=== PATIENT | female | born 1975 | race Two or more races ===

== ENCOUNTER 2020-04-21 13:03 | Outpatient (REF) | payer MEDICAID, SELFPAY ==
--- NOTE | 2020-04-21 | MM_ITS ---
EXAMINATION: MM SCREENING DIGITAL BREAST TOMOSYNTHESIS, BILATERAL CLINICAL INFORMATION: Screening. Asymptomatic. The lifetime risk of breast cancer based on the Tyrer-Cuzick Model is 7%. COMPARISON: Mammography: 06/08/2017 TECHNIQUE: Digital breast tomosynthesis is performed in both the craniocaudal and mediolateral oblique views along with computer-aided detection (CAD). Synthesized 2D images are generated from the tomosynthesis. FINDINGS: The breasts are heterogeneously dense, which may obscure small masses (ACR BI-RADS breast composition Category c). The right MLO view has oval nodule upper quadrant 11.8 cm from nipple measuring 1.0 x 1.3 cm. This is increased in size from prior study 2017, prior measurement 0.4 x 0.6 cm. Finding may represent a reactive node. There are bilateral nipple piercings, not present on prior study. Patient will be recalled for additional imaging with ultrasound. The bilateral breasts are otherwise unremarkable with no interval mass or architectural abnormality. There are no abnormal calcifications. The skin contours are smooth. IMPRESSION: 1. Right: Nodule upper right breast increased in size since 2017, possibly reactive node. 2. Left: No mammographic evidence of malignancy. ASSESSMENT: BI-RADS 0: Incomplete - Need Additional Imaging Evaluation RECOMMENDATION: 1. Targeted ultrasound right breast. 2. Radiology department staff will contact the patient for additional imaging. This patient's information was entered into a reminder system with a target due date for their next mammogram.
== END 2020-04-21 13:04 | disposition home or self-care (01) ==
LOC: HO.MAMMO 13:03
PROVIDERS: Visit Provider Advanced Practice Midwife
DX: Z12.31 Encounter for screening mammogram for malignant neoplasm of breast (principal)
CPT/HCPCS: 77063; 77067

== ENCOUNTER 2020-04-24 11:25 | Outpatient (REF) | payer MEDICAID, SELFPAY ==
--- NOTE | 2020-04-24 11:33 | US_ITS ---
EXAMINATION: US DIAGNOSTIC ULTRASOUND BREAST, RIGHT CLINICAL INFORMATION: Recall from screening for oval nodule upper right breast on MLO view with smooth margins, increased in size from 2017, possibly reactive node. COMPARISON: Mammography 04/21/2020, 06/08/2017. TECHNIQUE: Ultrasound right breast is targeted to the upper outer quadrant. Grayscale imaging and color Doppler are performed. FINDINGS: There is a benign lymph node 11:00 position upper right breast measuring 1.1 x 0.7 cm. There is normal penelope architecture with thin cortex under 3 mm and normal color flow pattern. There is no hyperemia. No cystic change. No axillary adenopathy. Results are discussed with the patient at time of visit using an supervisor pipeline. The finding on mammography represents a benign node. There are bilateral nipple piercings since prior mammography at new right arm tattoo in past 12 months likely related to the minor change in node size. IMPRESSION: Benign node upper right breast corresponding to finding on recent mammography. ASSESSMENT: BI-RADS 2: Benign RECOMMENDATION: Routine annual mammography screening. This patient's information was entered into a reminder system with a target due date for their next mammogram.
== END 2020-04-24 11:26 | disposition home or self-care (01) ==
LOC: HO.MAMMO 11:25
PROVIDERS: PCP Nurse Practitioner Family; Visit Provider Advanced Practice Midwife
DX: N63.0 Unspecified lump in unspecified breast (principal)
CPT/HCPCS: 76642

== ENCOUNTER 2020-06-02 17:30 | Outpatient (REF) | payer MEDICAID, SELFPAY | END 2020-06-02 17:31 | disposition home or self-care (01) | LOC: HO.LAB 17:30 | PROVIDERS: PCP Nurse Practitioner Family; Visit Provider Internal Medicine | DX: Z20.828 Contact with and (suspected) exposure to other viral communicable diseases (principal) | CPT/HCPCS: C9803; U0003 ==

== ENCOUNTER 2020-06-27 15:34 | Outpatient (REF) | payer MEDICAID, SELFPAY ==
[2020-06-29 12:02] LABS: BV Int Neg Control Negative (Negative); BV Int Pos Control Positive (Positive)
== END 2020-06-27 15:35 | disposition home or self-care (01) ==
LOC: HO.LAB 15:34
PROVIDERS: PCP Nurse Practitioner Family; Visit Provider Advanced Practice Midwife
DX: N89.8 Other specified noninflammatory disorders of vagina (principal); Z20.2 Contact with and (suspected) exposure to infections with a predominantly sexual mode of transmission
CPT/HCPCS: 87480; 87491; 87510; 87591; 87660; 99212

== ENCOUNTER 2020-10-09 16:01 | Inpatient (IN) | payer MEDICAID, SELFPAY ==
--- NOTE | ~2020-10-09 | CT_ITS ---
EXAMINATION: CT CHEST WITH CONTRAST CLINICAL INFORMATION: Status post breast implant with large amount of bloody drainage COMPARISON: None TECHNIQUE: Multidetector volumetric CT imaging of the chest was obtained after the administration of 65 mL of Omnipaque 350 intravenous contrast without immediate adverse reactions. Axial MIP volume rendering provided. Sagittal and coronal reformatted images were obtained. This CT examination was performed using dose optimization techniques as appropriate, variously including the following: *Automated exposure control *Adjustment of mA and/or kV according to patient size (this includes techniques or standardized protocols for targeted exams where dose is matched to indication/reason for exam; i.e. extremities or head) *Use of iterative reconstruction technique DLP: 425 mGy-cm FINDINGS: HAND DECORATOR: Unremarkable. LUNGS: The lungs are well-expanded and clear of acute pneumonic process. There is minimal compressive bibasilar atelectasis MEDIASTINUM: Heart size and the great vessels are normal caliber. The central trachea and the bronchi are widely patent. No abnormal size mediastinal lymph nodes seen. There is no pericardial effusion. PLEURA: There are small bilateral pleural effusions. AXILLA: No lymphadenopathy. There are bilateral retro pectoralis breast implants. Lateral to the right breast tissue there is soft tissue density measuring 20 Hounsfield units. It approximately measures 8.4 x 2.6 cm on axial image 45/3 and likely represents seroma or old hematoma. UPPER ABDOMEN: Visualized liver, spleen, pancreas and bilateral adrenal glands unremarkable. OSSEOUS STRUCTURES: No lytic or sclerotic process seen. CT/CT chest w con IMPRESSION: Bilateral retroareolar breast implants. There is soft tissue density lateral and posterior the right breast tissue likely old hematoma/seroma. There are bilateral small pleural effusions and bilateral compressive minimal atelectasis.
--- NOTE | ~2020-10-09 | US_ITS ---
EXAMINATION: ULTRASOUND-GUIDED RIGHT BREAST ASPIRATION CLINICAL INFORMATION: Hematoma right breast after breast augmentation COMPARISON: CT scan of October 09, 2020 of the chest TECHNIQUE: Ultrasound-guided aspiration of the right breast FINDINGS: Informed consent was obtained from the patient prior to the procedure. During this process, the procedure and potential alternatives were explained, along with the intended outcome and benefits. The risks of the procedure, as well as the risk of not doing the procedure, were discussed. The patient was given the opportunity to ask questions regarding the procedure and appeared competent to make medical decisions. A signed consent form which documents this discussion was placed in the medical record. Using sterile technique and ultrasound guidance a 5 Hebrew Yueh needle was placed into right breast fluid collection along the lateral aspect. Lysed blood was aspirated with repositioning of the needle into multiple fluid pockets. A total of 62 mL of nonclotting blood was removed from multiple areas of diminished density with the appearance of liquid remaining however the needle tracks can be seen within the low echogenicity representing tracts within nonlysed hematoma. US/US drain soft tissue w imaging IMPRESSION: Aspiration of 62 mL of nonclotting sanguinous fluid. Residual non-liquefied hematoma present.
[2020-10-09 16:16] VITALS: BP 138/78; PULSE 94; RESP 18; TEMP 36.8; O2SAT 100; BMI 27.4
[2020-10-09 18:00] VITALS: BP 120/56; PULSE 92; RESP 18; TEMP 37.3; O2SAT 98
--- NOTE | 2020-10-09 20:03 | PC.NURSE ---
PT TO ED WITH C/O BLEEDING FROM SURGICAL SITE FROM BREAST AUGMENTATION ON 09/24/20 IN [place]. PT HAS BLEEDING THRU DRESSINGS. DRESSING REMOVED BY PA. PRENATAL GENETIC COUNSELOR AT BEDSIDE WITH PA. PT DENIES PAIN AT THIS TIME. PT ARRIVES ALERT, RESPIRATIONS EASY, N/L. SKIN W/D. WILL CONTINUE TO MONITOR PT.
[2020-10-09 21:01] LABS: MANUAL DIFF FLAG NO
[2020-10-09 21:03] LABS: Basophils Percent Auto 0.2 % (0-2); Eosinophils Absolute Auto 0.3 X10*3/uL (0.0-0.4); Eosinophils Percent Auto 3.2 % (0-4); Hemoglobin 9.4 g/dl (12.0-16.0); Imm Gran Abs Auto 0.06 X10*3/uL (0.00-0.03); Imm Gran Pct Auto 0.7 % (0.0-0.4); Lymphocytes Absolute Auto 2.1 X10*3/uL (1.2-4.9); Lymphocytes Percent Auto 24.5 % (20-40); Mean Corpuscular HGB Conc 31.3 g/dl (31.0-35.0); Mean Corpuscular Hemoglobin 27.7 pg (27.0-33.0); Mean Corpuscular Volume 88.5 fL (80-98); Monocytes Absolute Auto 0.4 X10*3/uL (0.1-1.2); Monocytes Percent Auto 4.8 % (2-11); Neutrophils Absolute Auto 5.8 X10*3/uL (2.0-8.3); Neutrophils Percent Auto 66.6 % (45-73); Platelet Count 591 X10*3/uL (160-400); Red Blood Count 3.39 X10*6/uL (4.20-5.50); Red Cell Distribution Width 15.8 % (11.0-16.0); White Blood Count 8.7 X10*3/uL (4.8-10.8)
--- NOTE | 2020-10-09 21:07 | PC.NURSE ---
LABS DRAWN TO LAB.
[2020-10-09 21:09] LABS: INTERNATIONAL NORM RATIO 1.1 (0.9-1.1); Prothrombin Time 12.6 SEC (10.8-13.0)
[2020-10-09 21:11] LABS: Partial Thromboplastin Time 36.2 SEC (24.1-38.0)
[2020-10-09 21:25] LABS: Anion Gap 11 (12-20); Blood Urea Nitrogen 13 mg/dL (9-16); Calcium 8.9 mg/dL (8.4-10.2); Carbon Dioxide 25 mmol/L (22-29); Chloride 106 mmol/L (96-108); Creatinine Clr Calc Pharmacy 109.7; Estimated Glomerular Filt Rate > 60; Glucose Random 88 mg/dL (60-115); Potassium 4.2 mmol/L (3.3-5.1); Sodium 138 mmol/L (135-145)
--- NOTE | 2020-10-09 22:28 | PC.NURSE ---
pt to ct in stretcher.
[2020-10-09 22:44] VITALS: BP 118/71; PULSE 89; RESP 16; TEMP 37; O2SAT 99
[2020-10-09 23:48] VITALS: BP 124/74; PULSE 87
--- NOTE | 2020-10-09 23:48 | ED_ITS ---
HPI - General Adult General Chief complaint: General Medical Stated complaint: s/p surgery bleeding Time Seen by Provider: 10/09/20 18:30 Source: patient Mode of arrival: ambulatory History of Present Illness HPI narrative: 44-year-old female with a past medical history of anxiety, depression, breast augmentation and tummy tuck in [place] and 09/24 presenting to the ED complaining of increased bleeding from right breast since last night. R eports soaking multiple pads/through clothing. Denies pain or taking anticoagulation, denies known trauma/injury. Reports mild fatigue/lightheadedness. Denies fever, chills, headache, nausea/vomiting Onset (ago): day(s) Related Data Home Medications Medication Instructions Recorded Confirmed clonazepam 1 mg tablet 1 mg PO DAILY 06/27/20 quetiapine 400 mg tablet 400 mg PO BID 06/27/20 Previous Rx's Medication Instructions Recorded metronidazole 0.75 % vaginal gel 1 appful VAGINAL BEDTIME 5 Days 06/30/20 #70 g Allergies Allergy/AdvReac Type Severity Reaction Status Date / Time No Known Allergies Allergy Verified 06/27/20 15:51 Review of Systems Review of Systems: Constitutional: No Fever, No Chills, + Fatigue, No Malaise Cardiovascular: No Chest Pain, No SOB Gastrointestinal: No Nausea, No Vomiting, No Diarrhea, No Abdominal pain Musculoskeletal: No joint pain, No Myalgias Skin: No Skin Lesions, No rash Neuro: No Weakness, No Numbness, + lightheadedness, No Headache Yes all other systems are reviewed and are negative PMFSH Past Medical History Attestation statement: The following information was validated with the patient. Medical History (Updated 10/09/20 @ 23:58 by MO Abdalla) Anxiety Depression Surgical History (Updated 10/09/20 @ 16:22 by Lotus Barcenas RN) H/O breast augmentation History of abdominal surgery Hx of tubal ligation Family History Family History Father HTN (hypertension) Mother HTN (hypertension) Social History Social History (Updated 06/27/20 @ 15:53 by OSMAR Kenney) Alcohol intake: never Smoking Status: Never smoker Advance Directives: No Advance Directives Information Provided: Yes Gender identity: female Physical Exam Vital Signs: Vital Signs: Last Vital Signs Temp 98.6 F 10/09/20 22:44 Pulse 96 10/10/20 01:08 Resp 16 10/09/20 22:44 BP 139/81 10/10/20 01:08 Pulse Ox 99 10/09/20 22:44 Body Mass Index 27.4 Const: General: cooperative and healthy appearing Orien tation/consciousness: patient oriented x3 Limitations: no limitations HENMT: Head: Yes normal to inspection Ears: hearing grossly normal bilaterally General nose exam: Normal external nose present Face and sinus: Yes normal facial exam Eyes: General: appearance normal, both eyes and all related structures EOM: EOMs intact bilaterally Neck: Neck: Yes normal visual inspection Chest: Other: Incision sites noted to bilateral breasts. Right breast with swelling, dry blood, and ecchymosis. No appreciable fluctuance/induration or expressible drainage. No active signs of infection Resp: Effort & Inspection: normal respiratory effort Cardio: Rate: regular rate GI: Other: Incision site noted to lower abdomen with slight midline dehiscence Inspection: Yes normal to inspection Palpation (GI): Soft to palpation, Tenderness to palpation present (GI) and not rigid Skin: Rashes: no rashes Neuro: General: patient oriented x3 Gait exam (Neuro): Normal gait present Extrem: General: Yes normal to inspection Course Course Course Narrative: -H&H .11/07, no leukocytosis, labs otherwise unremarkable CT chest w con IMPRESSION: Bilateral retroareolar breast implants. There is soft tissue density lateral and posterior the right breast tissue likely old hematoma/seroma. There are bilateral small pleural effusions and bilateral compressive minimal atelectasis >> surgery consulted -[id number]--plan to admit for further management Medical Decision Making [facility] Narrative Medical decision making narrative: 44-year-old female with a past medical history of anxiety, depression, breast augmentation and tummy tuck in [place] and 09/24 presenting to the ED complaining of increased bleeding from right breast since last night. On exam VS as, NAD, physical exam as above. Concern for underlying hematoma/seroma versus infection or abscess. No signs of active cellulitis Plan: Labs, CT Lab Data Result diagrams: 10/09/20 20:47 10/09/20 20:47 Labs: Lab Results 10/09/20 10/09/20 10/09/20 Range/Units 20:47 20:47 20:47 WBC 8.7 (4.8-10.8) X10*3/uL RBC 3.39 L (4.20-5.50) X10*6/uL Hgb 9.4 L (12.0-16.0) g/dl Hct 30.0 L (37-47) % MCV 88.5 (80-98) fL MCH 27.7 (27.0-33.0) pg MCHC 31.3 (31.0-35.0) g/dl RDW 15.8 (11.0-16.0) % Plt Count 591 H (160-400) X10*3/uL MPV 9.0 L (9.4-12.3) fL Immature Gran % (Auto) 0.7 H (0.0-0.4) % Neut % (Auto) 66.6 (45-73) % Lymph % (Auto) 24.5 (20-40) % Levy % (Auto) 4.8 (2-11) % Eos % (Auto) 3.2 (0-4) % Baso % (Auto) 0.2 (0-2) % Lymph # (Auto) 2.1 (1.2-4.9) X10*3/uL Levy # (Auto) 0.4 (0.1-1.2) X10*3/uL Eos # (Auto) 0.3 (0.0-0.4) X10*3/uL Baso # (Auto) 0.0 (0.0-0.2) X10*3/uL Abs Immat Gran (auto) 0.06 H (0.00-0.03) X10*3/uL Absolute Neuts (auto) 5.8 (2.0-8.3) X10*3/uL Absolute Nucleated RBC 0.000 (0.0-0.012) X10*3/uL Nucleated RBC % (auto) 0.0 (0.0-0.2) /100WBC PT 12.6 (10.8-13.0) SEC INR 1.1 (0.9-1.1) APTT 36.2 (24.1-38.0) SEC Sodium 138 (135-145) mmol/L Potassium 4.2 (3.3-5.1) mmol/L Chloride 106 (96-108) mmol/L Carbon Dioxide 25 (22-29) mmol/L Anion Gap 11 L (12-20) BUN 13 (9-16) mg/dL Creatinine 0.70 (0.5-1.4) mg/dL Estim Creat Clear Calc 109.7 Estimated GFR > 60 Random Glucose 88 (60-115) mg/dL Calcium 8.9 (8.4-10.2) mg/dL Discharge Plan Discharge Clinical Impression: Breast hematoma, Post-operative complication Patient Disposition: Admitted As Inpatient
--- NOTE | 2020-10-10 00:29 | PC.NURSE ---
PT BEING ADMITTED AT THIS TIME. PT REMAINS ALERT, RESPIRAITONS EASY, N/L. SKIN W/D. WILL CONTINUE TO MONITOR PT.
[2020-10-10 01:08] VITALS: BP 134/75; BP 139/81; PULSE 92; PULSE 96
--- NOTE | 2020-10-10 01:09 | PC.NURSE ---
ISRAEL'S OBTAINED TO
[2020-10-10 02:06] LABS: COVID-19 Test Negative (Negative)
--- NOTE | 2020-10-10 03:01 | PC.NURSE ---
PT SLEEPING, WAKES TO VOICE, PT AWAITING ROOM ASSIGNMENT FOR ADMISSION. WILL CONTINUE TO MONITOR PT.
[2020-10-10 04:00] VITALS: BP 132/78; PULSE 82; RESP 16
--- NOTE | 2020-10-10 05:00 | PC.NURSE ---
MED REC DONE. PT DENIES ANY COMPLAINTS,
--- NOTE | 2020-10-10 05:45 | PC.NURSE ---
pt sleeping, wakes to voice, pt NPO and awaiting further orders. Pt in NAD at this time. family at bedside with pt.
--- NOTE | 2020-10-10 05:50 | P.HPGS_ITS ---
History of Present Illness History of Present Illness Date of Service: 10/10/20 Chief complaint: RIGHT BREAST HEMATOMA Narrative: Chana Beach is a 44 year old female presenting to the ED with complaints of bleeding from the right breast. She is s/p breast augmentation and abdominoplasty performed in [place], [place] on 09/24/2020. She started bleeding through her clothing 2 days ago and subsequently presented to the ED last evening. Workup in the ED included a CT of the chest which revealed a seroma or old hematoma in the right breast with intact implants. She denies any problems with her abdominal wounds Review of Systems Constitutional: Constitutional: Denies chills, Denies fever(s), Denies heada sammy(s) and Denies poor appetite ENT: Denies dizziness and Denies headache(s) Cardiovascular: Cardiovascular: Denies chest pain, Denies rapid heart rate, Denies palpitations and Denies slow heart rate Respiratory: Respiratory: Denies chest congestion, Denies cough, Denies pain on inspiration and Denies wheezing Gastrointestinal: Gastrointestinal: Denies abdominal pain, Denies bloating, Denies change in stool character, Denies constipation, Denies diarrhea, Denies nausea, Denies vomiting and Denies hematemesis Musculoskeletal: Musculoskeletal: Denies back pain, Denies arthralgias, Denies joint swelling and Denies numbness Integumentary/Breasts: Skin/Breast: Reports as per HPI, Denies change in pigmentation, Denies erythema and Denies rash Neurologic: Denies dizziness, Denies headache(s) and Denies numbness Psychiatric: Psychiatric: Denies anxiety and Denies depression Endocrine: Endocrine: Denies palpitations Hematologic/Lymphatic: Hematologic/Lymphatic: Denies easy bleeding, Denies easy bruising and Denies lymphadenopathy Allergic/Immunologic: Allergic/Immunologic: Denies wheezing PMFSH Past Medical History Medical History (Updated 10/09/20 @ 23:58 by MO Abdalla) Anxiety Depression Family History Family History Father HTN (hypertension) Mother HTN (hypertension) Surgical History Surgical History (Updated 10/10/20 @ 07:59 by Franklin Sagastume MD) H/O breast augmentation History of abdominal surgery Hx of tubal ligation Social History Social History (Updated 06/27/20 @ 15:53 by OSMAR Kenney) Alcohol intake: never Smoking Status: Never smoker Advance Directives: No Advance Directives Information Provided: Yes Gender identity: female Meds Allergies Allergy/AdvReac Type Severity Reaction Status Date / Time No Known Allergies Allergy Verified 06/27/20 15:51 Home Medications Medication Instructions Recorded Confirmed Last Taken Type clonazepam 1 mg tablet 1 mg PO DAILY 06/27/20 Unknown History quetiapine 400 mg tablet 400 mg PO BID 06/27/20 Unknown History Physical Exam Vital Signs: Vital Signs: Last Vital Signs Temp 98.6 F 10/09/20 22:44 Pulse 82 10/10/20 04:00 Resp 16 10/10/20 04:00 BP 132/78 10/10/20 04:00 Pulse Ox 99 10/09/20 22:44 Body Mass Index 27.4 Const: General: cooperative, healthy appearing, comfortable and no acute distress Nutritional Appearance: well nourished Orientation/consciousness: patient oriented x3 HENMT: Head: Yes normal to inspection Eyes: Sclerae: sclerae normal EOM: EOMs intact bilaterally Neck: Neck: Yes normal visual inspection Chest: Other: Bilateral keyhole incisions with inplants. Wound seperation noted in the lower nipple incision. Chest/axillae images: 1. 2. site of bleeding Resp: Effort & Inspection: normal respiratory effort, no cough, no respiratory distress and no stridor Cardio: Jugular venous distension: no JVD GI: Other: low transverse incision with leakage from mid incision. No erythema. No seroma/hematoma. Inspection: Yes normal to inspection Palpation (GI): Soft to palpation, nontender, no guarding and not rigid Skin: General skin exam: dry skin Rashes: no rashes Neuro: General: patient oriented x3 and no focal motor deficits Extrem: General: Yes full ROM and Yes no clubbing, cyanosis or edema Psych: Appearance: grossly normal Results Results Labs: Short CBC 10/09/20 Range/Units 20:47 WBC 8.7 (4.8-10.8) X10*3/uL Hgb 9.4 L (12.0-16.0) g/dl Hct 30.0 L (37-47) % Plt Count 591 H (160-400) X10*3/uL BMP 10/09/20 20:47 Sodium 138 Potassium 4.2 Chloride 106 Carbon Dioxide 25 BUN 13 Creatinine 0.70 Calcium 8.9 Assessment and Plan (1) Breast hematoma: Status: Acute Patient presents with complaints of bleeding from her breast incision on the right side following plastic surgery performed in [place]. Workup reveals a hematoma with leakage from the incision below the nipple. Patient does have an implant which appears to be intact. I will request an IR drainage of the right breast hematoma. Patient expressed understanding and agrees with the plan. (2) Post-operative complication: Status: Acute
[2020-10-10 07:34] VITALS: BP 106/64; PULSE 96; RESP 14; TEMP 37.2; O2SAT 96
--- NOTE | 2020-10-10 07:38 | PC.NURSE ---
Addendum entered by Sonny Bullock RN 10/10/20 07:41: radiology to assess if drainage of area possible. b Original Note: pt resting on stretcher, no c/o at this moment, denies pain, r breast dsg removed, edematous, minimal drainage, new dcd applied. Dr Whitman at [facility] for consult at this time. Plan for radia
[2020-10-10] MEDS: Dextrose 5 % and Lactated Ring 1,000 ML 125 ML IVCONT (07:48)
[2020-10-10] MEDS: 0.9 % Sodium Chloride Flush 3 ML SYRINGE IVFLUSH ×2 (07:48→07:49)
[2020-10-10 10:53] VITALS: BP 110/71; PULSE 82; RESP 16; O2SAT 97
--- NOTE | 2020-10-10 10:53 | PC.NURSE ---
Plan for US guided drainage to right breast in approx 1 hour
--- NOTE | 2020-10-10 11:30 | PC.NURSE ---
Plan is off unit for U/S guided drainage procedure
[2020-10-10] MEDS: Lidocaine HCl 1 % MPF 5 ML VIAL SUBCUT (13:06)
[2020-10-10 13:35] VITALS: BP 127/76; PULSE 84; RESP 16; O2SAT 96
--- NOTE | 2020-10-10 14:05 | MHC.CM.PN ---
Addendum entered by Gaby Rubalcava 10/10/20 14:11: PTS NEW PCP IS SHAKIR PRADO Original Note: CM MET WITH PT AND S/O WHO WAS AT BEDSIDE. PT SPEAKS LIMITED YORUBA, S/O IS BILINGUAL. PT LIVES AT HOME WITH HER ADULT SON AND SHE IS INDEPENDENT WITH CARE AND MOBILITY. PT DENIES THE USE OF DME OR SERVICES. PT DOES NOT HAVE A HCP, INFORMATION AND DOCUMENT WERE PROVIDED. PT DOES NOT KNOW WHO HER PCP IS, SHE WAS ACTIVE WITH GRANT LOZANO WHO RETIRED. CM WILL CALL [facility] TO FIND OUT WHO WAS ASSIGNED TO PT. CURRENT DC PLAN IS HOME WITH NO SERVICES PTS S/O WILL TRANSPORT
--- NOTE | 2020-10-10 14:38 | PM.DS ---
DS: Providers Provider Date of Service: 10/10/20 Date of admission: 10/10/20 00:03 Date of discharge: 10/10/20 Primary care physician: Marleny Ray NP Admitting clinician: Franklin Sagastume Discharging clinician: Franklin Sagastume DS: Diagnosis Discharge Diagnosis (1) Breast hematoma: Status: Acute (2) Post-operative complication: Status: Acute DS: Medications Discharge Medications Home Medications: Home Medications Medication Instructions Recorded Confirmed clonazepam 1 mg tablet 0.5 mg PO BEDTIME 06/27/20 10/10/20 ascorbic acid (vitamin C) [Vitamin 500 mg PO DAILY 10/10/20 10/10/20 C] biotin 800 mcg PO DAILY 10/10/20 10/10/20 ferrous sulfate 325 mg PO DAILY 10/10/20 10/10/20 quetiapine 12.5 mg PO BEDTIME 10/10/20 10/10/20 DS: Summary Hospital Course Hospital Course: Chana Beach is a 44 year old female presenting to the ED with complaints of bleeding from the right breast. She is s/p breast augmentation and abdominoplasty performed in [place], [place] on 09/24/2020. She started bleeding through her clothing 2 days ago and subsequently presented to the ED last evening. Workup in the ED included a CT of the chest which revealed a seroma or old hematoma in the right breast with intact implants. She denies any problems with her abdominal wounds. Examination revealed an area of bleeding from the keyhole incision just below the right nipple. The incision was otherwise clean and intact without erythema. Abdominal wounds appeared intact with a small wound separation the midline. No evidence of wound infection in the abdominal wounds as well. Patient was placed in observation and arrangements made for interventional radiology to drain the hematoma. This was performed on 10/10/2020 and an old hematoma evacuated. The patient tolerated this well. Patient is discharged to home and should follow up in my office in approximately 1 week for wound examination. She should call sooner for concerns. Time Spent with Patient Time attestation: Total time spent providing and/or coordinating discharge services: Discharge coordination time: Less than 30 minutes Physical Exam Vital Signs: Vital Signs: Last Vital Signs Temp 99.0 F 10/10/20 07:34 Pulse 84 10/10/20 13:35 Resp 16 10/10/20 13:35 BP 127/76 10/10/20 13:35 Pulse Ox 96 10/10/20 13:35 Body Mass Index 27.4 Const: General: cooperative, healthy appearing, comfortable and no acute distress Chest: Other: Bilateral breast incisions with keyhole type incisions. Drainage is noted above in the incision just below the nipple on the right side. A slight fullness is palpable but no drainage is noted with light pressure on the wound. Left breast is clean and intact. GI: Other: Low-transverse incision consistent with an abdominal plasty. Wounds are clean with a small separation in the center. No bloody discharge is appreciated. DS: Data Data Completed and Pending Labs on day of discharge: Laboratory Results - last 24 hr 10/09/20 10/09/20 10/09/20 20:47 20:47 20:47 WBC 8.7 RBC 3.39 L Hgb 9.4 L Hct 30.0 L MCV 88.5 MCH 27.7 MCHC 31.3 RDW 15.8 Plt Count 591 H MPV 9.0 L Immature Gran % (Auto) 0.7 H Neut % (Auto) 66.6 Lymph % (Auto) 24.5 [place] % (Auto) 4.8 Eos % (Auto) 3.2 Baso % (Auto) 0.2 Lymph # (Auto) 2.1 [place] # (Auto) 0.4 Eos # (Auto) 0.3 Baso # (Auto) 0.0 Abs Immat Gran (auto) 0.06 H Absolute Neuts (auto) 5.8 Absolute Nucleated RBC 0.000 Nucleated RBC % (auto) 0.0 PT 12.6 INR 1.1 APTT 36.2 Sodium 138 Potassium 4.2 Chloride 106 Carbon Dioxide 25 Anion Gap 11 L BUN 13 Creatinine 0.70 Estim Creat Clear Calc 109.7 Estimated GFR > 60 Random Glucose 88 Calcium 8.9 COVID-19 ([facility]) COVID-19 Clin Com 10/10/20 01:35 WBC RBC Hgb Hct MCV MCH MCHC RDW Plt Count MPV Immature Gran % (Auto) Neut % (Auto) Lymph % (Auto) [place] % (Auto) Eos % (Auto) Baso % (Auto) Lymph # (Auto) [place] # (Auto) Eos # (Auto) Baso # (Auto) Abs Immat Gran (auto) Absolute Neuts (auto) Absolute Nucleated RBC Nucleated RBC % (auto) PT INR APTT Sodium Potassium Chloride Carbon Dioxide Anion Gap BUN Creatinine Estim Creat Clear Calc Estimated GFR Random Glucose Calcium COVID-19 (LUCAS) Negative COVID-19 Clin Com See Note Discharge Plan Discharge Patient Disposition: Home, Self-Care Referrals: Marelny Ray NP [Primary Care Provider] - Franklin Sagastume MD [Physician] - 1 Week Discharge Medications: Continued biotin 800 mcg Tablet 800 mcg PO DAILY RF: 0 ascorbic acid (vitamin C) [Vitamin C] 500 mg Tablet 500 mg PO DAILY RF: 0 ferrous sulfate 325 mg (65 mg iron) Tablet 325 mg PO DAILY RF: 0 quetiapine 50 mg Tablet 12.5 mg PO BEDTIME RF: 0 clonazepam 1 mg tablet 0.5 mg PO BEDTIME RF: 0 Discharge Orders: Discharge Order (Routine); Ordered 10/10/20 Ordered By: Franklin Sagastume Diet: advance to usual diet Activity on Discharge: No heavy lifting Stand Alone Forms: Patient Portal Discharge page Care Plan Goals: Healed breast and abdominal wounds Health Concerns: Postoperative hematoma right breast Plan of Treatment: Drainage of hematoma right breast
== END 2020-10-10 16:02 | disposition home or self-care (01) | DRG 813 ==
LOC: HO.ED 23:58 → HO.EDOVER 10-10 00:20
PROVIDERS: Physician Assistant; Admitting Provider Surgery; Emergency Provider Emergency Medicine; PCP Nurse Practitioner Family; Visit Provider Surgery
DX: L76.32 Postprocedural hematoma of skin and subcutaneous tissue following other procedure (principal); F32.9 Major depressive disorder, single episode, unspecified; F41.9 Anxiety disorder, unspecified; Z20.822 Contact with and (suspected) exposure to COVID-19; Z79.899 Other long term (current) drug therapy
CPT/HCPCS: 10030; 36415; 71260; 80048; 85025; 85610; 85730; 87071; 87205; 87635; 99284; Q9967

== ENCOUNTER → 2020-10-17 14:38 | Outpatient (BNVA) | payer MEDICAID, SELFPAY | PROVIDERS: PCP Nurse Practitioner Family; Visit Provider Surgery | DX: L76.32 Postprocedural hematoma of skin and subcutaneous tissue following other procedure (principal); L03.311 Cellulitis of abdominal wall | CPT/HCPCS: 99212 ==

== ENCOUNTER 2020-10-24 12:29 | Outpatient (REF) | payer MEDICAID, SELFPAY ==
--- NOTE | ~2020-10-24 | US_ITS ---
EXAMINATION: US DIAGNOSTIC ULTRASOUND BREAST, RIGHT CLINICAL INFORMATION: 45-year-old female status post ultrasound-guided aspiration postoperative seroma right breast. Follow-up. Prior history retroperitoneal implants earlier this year performed in [place]. COMPARISON: CT chest with contrast 10/09/2020, ultrasound-guided right breast aspiration 10/10/2020. TECHNIQUE: Ultrasound right breast is performed targeted to the lower breast 3:00 through 9:00 position. Grayscale imaging and color Doppler are performed. FINDINGS: There is an irregular shaped fluid collection in the lower breast similar in appearance to the prior ultrasound 10/10/2020. There is no interval architectural abnormality or edema tracking in soft tissue planes. No surrounding hyperemia on color Doppler. Overall dimensions are approximately 2.0 x 5.6 x 6.2 cm. The overall dimensions prior to aspiration are not provided on the prior ultrasound. Prior exam pre-procedural measurements are estimated at over 2.6 x 5.6 x 6.7 cm. Results are called and discussed with Dr. Sagastume. Results discussed with the patient using an retail interior designer. Patient to follow-up with Dr. Sagastume at approximately 2 weeks, earlier if new or increasing symptoms. US/US breast RT limited IMPRESSION: Recurrent right breast seroma with overall dimensions approximately 2.0 x 5.6 x 6.2 cm. Prior pre-aspiration dimensions are estimated at over 2.6 x 5.6 x 6.7 cm. ASSESSMENT: BI-RADS 3: Probably Benign RECOMMENDATION: Patient to follow-up with Dr. Sagastume in approximately 2 weeks, earlier if new or increasing symptoms. This patient's information was entered into a reminder system with a target due date for their next mammogram.
== END 2020-10-24 12:30 | disposition home or self-care (01) ==
LOC: HO.MAMMO 12:29
PROVIDERS: Visit Provider Surgery
DX: N64.89 Other specified disorders of breast (principal); Z98.890 Other specified postprocedural states
CPT/HCPCS: 76642

== ENCOUNTER 2020-10-29 22:07 | Emergency (ER) | payer MEDICAID, SELFPAY ==
--- NOTE | ~2020-10-29 | XR_ITS ---
EXAMINATION: XR CHEST CLINICAL INFORMATION: Shortness of breath COMPARISON: 02/18/2016 TECHNIQUE: Frontal view of the chest was obtained. FINDINGS: The lungs are well expanded. There is no focal consolidation, edema, or effusion. No pneumothorax. The cardiomediastinal silhouette is within normal limits. No acute osseous abnormality. XR/XR chest 1V IMPRESSION: Clear lungs.
--- NOTE | ~2020-10-29 | CT_ITS ---
EXAMINATION: CT ANGIOGRAM OF THE CHEST WITH AND WITHOUT CONTRAST (CT PULMONARY ANGIOGRAM FOR PE) CLINICAL INFORMATION: Reason for Exam Short of breath post surgery COMPARISON: Chest radiograph 10/29/2020. CT 10/09/2020. TECHNIQUE: Prior to contrast administration, noncontrast localization images were obtained. Subsequently, multidetector volumetric imaging was performed from the thoracic inlet to below the diaphragms following the administration of 65 mL Omnipaque 350 intravenous contrast. No contrast reaction reported Sagittal, coronal, and MIP oblique sagittal reformatted images were obtained on the CT workstation, uploaded to PACS, and reviewed. This CT examination was performed using dose optimization techniques as appropriate, variously including the following: *Automated exposure control *Adjustment of mA and/or kV according to patient size (this includes techniques or standardized protocols for targeted exams where dose is matched to indication/reason for exam; i.e. extremities or head) *Use of iterative reconstruction technique Total exam dose-length product 514 mGy-cm FINDINGS: QUALITY OF STUDY/CONTRAST BOLUS: Satisfactory. PULMONARY ARTERIES: No central or segmental pulmonary emboli. THORACIC AORTA: No aneurysm or dissection. LUNG: No focal consolidation, nodules or masses. The central airways are patent. PLEURA: No pneumothorax. Small pleural effusions, right greater than left. MEDIASTINUM: Normal heart size. No pericardial effusion. No hilar or mediastinal lymphadenopathy. No evidence of septal bowing or right heart strain. CHEST WALL/AXILLA: No axillary or internal mammary lymphadenopathy. Bilateral retropectoral breast implants. There is an area of fluid in the inferior right breast soft tissues which may represent postoperative seroma. This measures 10.9 x 2.9 x 2 cm. OSSEOUS STRUCTURES: No acute or suspicious osseous abnormality. UPPER ABDOMEN: Unremarkable. No reflux of contrast into the hepatic veins to suggest elevated right heart pressures. CT/CT angio chest PE protocol IMPRESSION: 1. No pulmonary embolism. 2. Small bilateral pleural effusions. 3. Area of fluid in the inferior right breast soft tissues, possibly a postoperative seroma. Cannot exclude infection. VTE: negative
[2020-10-29 22:15] VITALS: BP 146/77; PULSE 87; RESP 18; TEMP 37.2; O2SAT 99; BMI 28.0
--- NOTE | 2020-10-29 23:45 | ECG_ITS ---
Test Reason : SOB/CP Blood Pressure : / mmHG Vent. Rate : 080 BPM Atrial Rate : 080 BPM P-R Int : 166 ms QRS Dur : 076 ms QT Int : 386 ms P-R-T Axes : 027 027 025 degrees QTc Int : 445 ms Normal sinus rhythm Normal ECG When compared with ECG of 07-MAR-2019 12:13, No significant change was found Referred By: Alejandro Hopper Electronically Signed By:Bonilla Phoenix
--- NOTE | 2020-10-29 23:45 | ED.SOB ---
HPI - SOB/Dyspnea General Chief Complaint: General Medical Stated Complaint: Wheezing/post breast reduction 09/24 Time Seen by Provider: 10/29/20 23:39 Source: patient Mode of arrival: ambulatory Limitations: no limitations History of Present Illness HPI Narrative: Patient is status post belly tuck and breast augmentation surgery done on 09/15/20 since surgery patient has been having shortness of breath which is getting worse for last 5 days been wheezing more. No history of asthma no cardiac history no leg pain or cramps no swelling of the legs wounds are healing fine patient denies any fever or cough previous COVID test was negative MD elicited complaint: shortness of breath Related Data Home Medications Medication Instructions Recorded Confirmed clonazepam 1 mg tablet 0.5 mg PO BEDTIME 06/27/20 10/17/20 ascorbic acid (vitamin C) [Vitamin 500 mg PO DAILY 10/10/20 10/17/20 C] biotin 800 mcg PO DAILY 10/10/20 10/17/20 ferrous sulfate 325 mg PO DAILY 10/10/20 10/17/20 quetiapine 12.5 mg PO BEDTIME 10/10/20 10/17/20 Previous Rx's Medication Instructions Recorded cephalexin 500 mg capsule 500 mg PO Q8H 10 Days #30 cap 10/17/20 Allergies Allergy/AdvReac Type Severity Reaction Status Date / Time No Known Allergies Allergy Verified 10/11/20 15:04 Review of Systems Review of Systems: Constitutional : No Weight loss, No Fever, No Chills ENT/Mouth : No sore throat, No Rhinorrhea Eyes: No Eye Pain, No Swelling Cardiovascular : No Chest Pain, no palpitations Respiratory : No Cough, No Sputum, + shortness of breath Gastrointestinal : no Nausea, No Vomiting, No Diarrhea, No abdominal Pain, no black stools Genitourinary : No Dysuria, No Urinary Frequency Musculoskeletal : No joint pain, No Myalgias, No Joint Swelling Skin : No Skin Lesions, No rash Neuro : No Weakness, No Numbness, No Dizziness, No Headache Psych : No Anxiety/Panic, No Depression Heme/Lymph: No Bruising, No Lymphadenopathy Endocrine : No Polyuria, No Polydipsia All other systems reviewed and are negative PMFSH Past Medical History Medical History Anxiety Depression Surgical History H/O breast augmentation History of abdominal surgery Hx of tubal ligation Family History Family History Father HTN (hypertension) Mother HTN (hypertension) Social History Social History Alcohol intake: never Smoking Status: Former smoker Use of substances other than those prescribed or required for medical reasons: No Advance Directives: No Advance Directives Information Provided: Yes service: No Current occupational status: unemployed Gender identity: female Physical Exam Vital Signs: Vital Signs: Last Vital Signs Temp 98.9 F 10/29/20 22:15 Pulse 87 10/29/20 22:15 Resp 16 10/30/20 00:00 BP 146/77 H 10/29/20 22:15 Pulse Ox 99 10/29/20 22:15 Body Mass Index 28.0 Appearance: Alert. Oriented X3. No acute distress. Eyes: Pupils equal, round and reactive to light. ENT: Pharynx normal. Neck: Normal inspection. Neck supple. CVS: Normal heart rate and rhythm. Pulses normal. Respiratory: No respiratory distress. Prolonged expiration no crackles or rales Abdomen: Soft and nontender. Bowel sounds are present, no mass palpable, no CVA tenderness Skin: Skin warm and dry. Normal skin color. Normal skin turgor. Extremities: No lower extremity edema. No calf tenderness Neuro: Oriented X 3. No motor deficit. No sensory deficit. MDM - SOB/Dyspnea MDM Narrative Medical decision making narrative: Patient with prolonged expiration/wheezing postop elevated D-dimer no crackles in the lungs COVID negative will do CTA chest to rule out PE Patient signed out to Dr. Mar pending CTA report Lab Data Attestation: I reviewed the patient's lab results. Result diagrams: 10/30/20 00:17 10/30/20 00:17 Labs: Lab Results 10/30/20 10/30/20 10/30/20 Range/Units 00:17 00:17 00:17 WBC 9.1 (4.8-10.8) X10*3/uL RBC 4.29 D (4.20-5.50) X10*6/uL Hgb 11.8 L D (12.0-16.0) g/dl Hct 37.4 D (37-47) % MCV 87.2 (80-98) fL MCH 27.5 (27.0-33.0) pg MCHC 31.6 (31.0-35.0) g/dl RDW 15.0 (11.0-16.0) % Plt Count 371 D (160-400) X10*3/uL MPV 9.8 (9.4-12.3) fL Immature Gran % (Auto) 0.2 (0.0-0.4) % Neut % (Auto) 59.4 (45-73) % Lymph % (Auto) 30.2 (20-40) % [place] % (Auto) 7.3 (2-11) % Eos % (Auto) 2.6 (0-4) % Baso % (Auto) 0.3 (0-2) % Lymph # (Auto) 2.8 (1.2-4.9) X10*3/uL [place] # (Auto) 0.7 (0.1-1.2) X10*3/uL Eos # (Auto) 0.2 (0.0-0.4) X10*3/uL Baso # (Auto) 0.0 (0.0-0.2) X10*3/uL Abs Immat Gran (auto) 0.02 (0.00-0.03) X10*3/uL Absolute Neuts (auto) 5.4 (2.0-8.3) X10*3/uL Absolute Nucleated RBC 0.000 (0.0-0.012) X10*3/uL Nucleated RBC % (auto) 0.0 (0.0-0.2) /100WBC PT 12.0 (10.8-13.0) SEC INR 1.0 (0.9-1.1) APTT 38.0 (24.1-38.0) SEC D-Dimer 990 NG/ML Sodium 139 (135-145) mmol/L Potassium 4.3 (3.3-5.1) mmol/L Chloride 105 (96-108) mmol/L Carbon Dioxide 24 (22-29) mmol/L Anion Gap 14 (12-20) BUN 14 (9-16) mg/dL Creatinine 0.77 (0.5-1.4) mg/dL Estim Creat Clear Calc 99.9 Estimated GFR > 60 Random Glucose 84 (60-115) mg/dL Calcium 9.8 D (8.4-10.2) mg/dL COVID-19 ([facility]) (Negative) COVID-19 Clin Com 10/30/20 Range/Units 00:17 WBC (4.8-10.8) X10*3/uL RBC (4.20-5.50) X10*6/uL Hgb (12.0-16.0) g/dl Hct (37-47) % MCV (80-98) fL MCH (27.0-33.0) pg MCHC (31.0-35.0) g/dl RDW (11.0-16.0) % Plt Count (160-400) X10*3/uL MPV (9.4-12.3) fL Immature Gran % (Auto) (0.0-0.4) % Neut % (Auto) (45-73) % Lymph % (Auto) (20-40) % [place] % (Auto) (2-11) % Eos % (Auto) (0-4) % Baso % (Auto) (0-2) % Lymph # (Auto) (1.2-4.9) X10*3/uL [place] # (Auto) (0.1-1.2) X10*3/uL Eos # (Auto) (0.0-0.4) X10*3/uL Baso # (Auto) (0.0-0.2) X10*3/uL Abs Immat Gran (auto) (0.00-0.03) X10*3/uL Absolute Neuts (auto) (2.0-8.3) X10*3/uL Absolute Nucleated RBC (0.0-0.012) X10*3/uL Nucleated RBC % (auto) (0.0-0.2) /100WBC PT (10.8-13.0) SEC INR (0.9-1.1) APTT (24.1-38.0) SEC D-Dimer NG/ML Sodium (135-145) mmol/L Potassium (3.3-5.1) mmol/L Chloride (96-108) mmol/L Carbon Dioxide (22-29) mmol/L Anion Gap (12-20) BUN (9-16) mg/dL Creatinine (0.5-1.4) mg/dL Estim Creat Clear Calc Estimated GFR Random Glucose (60-115) mg/dL Calcium (8.4-10.2) mg/dL COVID-19 ([facility]UCAS) Negative (Negative) COVID-19 Clin Com See Note Discharge Plan Discharge Clinical Impression: Bronchitis Prescriptions: No Action biotin 800 mcg Tablet 800 mcg PO DAILY RF: 0 ascorbic acid (vitamin C) [Vitamin C] 500 mg Tablet 500 mg PO DAILY RF: 0 ferrous sulfate 325 mg (65 mg iron) Tablet 325 mg PO DAILY RF: 0 quetiapine 50 mg Tablet 12.5 mg PO BEDTIME RF: 0 clonazepam 1 mg tablet 0.5 mg PO BEDTIME RF: 0 cephalexin 500 mg capsule 500 mg PO Q8H 10 Days Qty: 30 RF: 0
[2020-10-30] VITALS: RESP 16
[2020-10-30 00:22] LABS: Basophils Percent Auto 0.3 % (0-2); Eosinophils Absolute Auto 0.2 X10*3/uL (0.0-0.4); Eosinophils Percent Auto 2.6 % (0-4); Hematocrit 37.4 % (37-47); Hemoglobin 11.8 g/dl (12.0-16.0); Imm Gran Abs Auto 0.02 X10*3/uL (0.00-0.03); Imm Gran Pct Auto 0.2 % (0.0-0.4); Lymphocytes Absolute Auto 2.8 X10*3/uL (1.2-4.9); Lymphocytes Percent Auto 30.2 % (20-40); MANUAL DIFF FLAG NO; Mean Corpuscular HGB Conc 31.6 g/dl (31.0-35.0); Mean Corpuscular Hemoglobin 27.5 pg (27.0-33.0); Mean Corpuscular Volume 87.2 fL (80-98); Mean Platelet Volume 9.8 fL (9.4-12.3); Monocytes Absolute Auto 0.7 X10*3/uL (0.1-1.2); Monocytes Percent Auto 7.3 % (2-11); Neutrophils Absolute Auto 5.4 X10*3/uL (2.0-8.3); Neutrophils Percent Auto 59.4 % (45-73); Platelet Count 371 X10*3/uL (160-400); Red Blood Count 4.29 X10*6/uL (4.20-5.50); White Blood Count 9.1 X10*3/uL (4.8-10.8)
[2020-10-30 00:32] LABS: D Dimer 990 NG/ML
[2020-10-30] MEDS: Albuterol Sulfate 90 MCG 8 GM INHALER 4 PUFF INHALE (00:35)
[2020-10-30 00:54] LABS: Anion Gap 14 (12-20); Blood Urea Nitrogen 14 mg/dL (9-16); Calcium 9.8 mg/dL (8.4-10.2); Carbon Dioxide 24 mmol/L (22-29); Chloride 105 mmol/L (96-108); Creatinine Clr Calc Pharmacy 99.9; Estimated Glomerular Filt Rate > 60; Glucose Random 84 mg/dL (60-115); Potassium 4.3 mmol/L (3.3-5.1); Sodium 139 mmol/L (135-145)
[2020-10-30 00:55] LABS: COVID-19 Test Negative (Negative); IDNOW Serial# 9DD0AD1C
[2020-10-30] MEDS: iohexoL 350 MG/ML 100 ML INFUS..BTL 65 ML IV (02:49)
== END 2020-10-30 05:36 | disposition home or self-care (01) ==
PROVIDERS: Internal Medicine; Emergency Provider Emergency Medicine Emergency Medical Services
DX: J40 Bronchitis, not specified as acute or chronic (principal); J95.89 Other postprocedural complications and disorders of respiratory system, not elsewhere classified; R06.02 Shortness of breath; Z87.891 Personal history of nicotine dependence; Z20.822 Contact with and (suspected) exposure to COVID-19
CPT/HCPCS: 36415; 71045; 71275; 80048; 85025; 85379; 85610; 85730; 87635; 93005; 99284; Q9967

== ENCOUNTER 2020-11-17 14:28 | Emergency (ER) | payer MEDICAID, SELFPAY ==
[2020-11-17 14:48] VITALS: BP 123/78; PULSE 86; RESP 18; TEMP 37; O2SAT 95; BMI 29.4
--- NOTE | 2020-11-17 15:33 | PC.NURSE ---
PRESENT FOR BREAST EXAM WITH [facility] EM. PT TOLERATED PROCEDURE WELL. NEUROLOGIST PRESENT.
--- NOTE | 2020-11-17 16:48 | ED.GENADULT ---
HPI - General Adult General Chief complaint: Wound/Laceration Stated complaint: POST SURGICAL PAIN Time Seen by Provider: 11/17/20 15:10 Source: patient Mode of arrival: ambulatory Limitations: no limitations History of Present Illness HPI narrative: Patient presents to the ED for recurrence right breast issue since having breast augmentation done in [place]. Patient presents to ED for recurring lump on right breast. Patient denies any increased swelling of breast, redness, or nipple discharge. Patient unaware of silica moved in breast. Patient denies any recent trauma to the breast. Related Data Home Medications Medication Instructions Recorded Confirmed clonazepam 1 mg tablet 0.5 mg PO BEDTIME 06/27/20 10/17/20 ascorbic acid (vitamin C) [Vitamin 500 mg PO DAILY 10/10/20 10/17/20 C] biotin 800 mcg PO DAILY 10/10/20 10/17/20 ferrous sulfate 325 mg PO DAILY 10/10/20 10/17/20 quetiapine 12.5 mg PO BEDTIME 10/10/20 10/17/20 Previous Rx's Medication Instructions Recorded cephalexin 500 mg capsule 500 mg PO Q8H 10 Days #30 cap 10/17/20 Allergies Allergy/AdvReac Type Severity Reaction Status Date / Time No Known Allergies Allergy Verified 11/17/20 14:47 Review of Systems Review of Systems: Yes all other systems are reviewed and are negative Constitutional: Constitutional: Reports as per HPI and Reports no additional constitutional complaints Eyes: Eyes: Reports as per HPI and Reports no additional eye complaints ENT: Reports system reviewed and no additional complaints, except as documented and Reports as per HPI Cardiovascular: Cardiovascular: Reports as per HPI and Reports no additional cardiovascular complaints Respiratory: Respiratory: Reports as per HPI and Reports no additional respiratory complaints Gastrointestinal: Gastrointestinal: Reports as per HPI and Reports no additional gastrointestinal complaints Genitourinary: Genitourinary: Reports no additional female genitourinary complaints and Reports as per HPI Musculoskeletal: Musculoskeletal: Reports no additional musculoskeletal complaints and Reports as per HPI Comments: Right breast Neurologic: Reports system reviewed and no additional complaints, except as documented and Reports as per HPI Psychiatric: Psychiatric: Reports no additional psychiatric complaints and Reports as per HPI PMFSH Past Medical History Medical History Anxiety Depression Surgical History H/O breast augmentation History of abdominal surgery Hx of tubal ligation Family History Family History Father HTN (hypertension) Mother HTN (hypertension) Social History Social History Alcohol intake: never Smoking Status: Former smoker Advance Directives: No Advance Directives Information Provided: Yes Patient : No service: No Current occupational status: unemployed Gender identity: female Physical Exam Vital Signs: Vital Signs: Last Vital Signs Temp 98.6 F 11/17/20 14:48 Pulse 86 11/17/20 14:48 Resp 18 11/17/20 14:48 BP 123/78 11/17/20 14:48 Pulse Ox 95 11/17/20 14:48 Body Mass Index 29.4 Const: General: cooperative, healthy appearing, comfortable, no acute distress, well developed, alert, awake and Physically active Orientation/consciousness: patient oriented x3 HENMT: Head: Yes normal to inspection, Yes No palpable skull fracture present, Yes normocephalic and Yes atraumatic Eyes: General: appearance normal, both eyes and all related structures Neck: Neck: Yes normal visual inspection, Yes full ROM, Yes no lymphadenopathy, Yes no meningeal signs, Yes trachea midline, Yes supple and No tender Chest: Other: RIght Breast; negative for any erythema, swelling, nipple discharge, fluid leakage from scar, or any deformities. Negative for any palpable mass on inspection. Negative for any visual mass on extraction Chest palpation & inspection: normal inspection of the chest and normal palpation of entire chest wall Resp: Effort & Inspection: normal respiratory effort and able to speak in complete sentences Auscultation: clear to auscultation bilaterally Cardio: Jugular venous distension: no JVD Heart sounds: S1 normal heart sound present and S2 normal heart sound present GI: Inspection: Yes normal to inspection and No abdominal wall ecchymosis Palpation (GI): Soft to palpation, not firm, nontender, no guarding and not rigid : General: No CVA tenderness and Yes no CVA tenderness Back/Spine/Pelvis: Back: no CVA tenderness, No CVA tenderness and No back tenderness Skin: General skin exam: no rashes or lesions noted and elasticity normal Neuro: General: patient oriented x3, no meningeal signs and CN's II-XI intact bilaterally Cranial nerves: Yes CN's II-XII intact bilaterally Extrem: General: Yes normal to inspection and Yes full ROM Psych: Appearance: grossly normal, well kempt and not disheveled Course Course Course Narrative: Will discuss case with Dr. Sagastume. Reevaluation(s) Reevaluation #1: Case was discussed with Dr. Sagastume of [facility], [place]. He was made aware of patient's history and physical exam. He was sent a picuture of patient's breast. He does not recommend any further intervention, but states patient should follow-up with plastic surgeon. If Patient want he states patient can still follow up with him tomorrow. Patient was given information for Dr.Glenn Mark of [facility] plastic surgery & reconstructive surgery to contact for further evaluation. History physical exam does not indicate any infection. Patient given copy of ultrasound done October 24 for follow-up. Discharge Plan Discharge Clinical Impression: Encounter for wound re-check Patient Disposition: Home, Self-Care Instructions: Breast Augmentation (DC) Additional Instructions: Regrese al servicio de urgencias de inmediato si tiene enrojecimiento de los senos, secreci?n de pus, mal olor, hinchaz?n, dolor, dolor en el pecho, dificultad para respirar, p?rdida de l?quido o cualquier otro s?ntoma que le preocupe. El Dr. Sagastume de [facility] recomienda un seguimiento de la cirug?a pl?stica. Hector un seguimiento con el Dr. Jayme Mark MD de [facility] Llame al n?familia [phone]. La direcci?n es [address] [facility] [address]. Debe acudir a la kellie con el Dr. Sagastume de la [facility] del [facility] ?l recomienda un seguimiento con el cirujano pl?stico. Prescriptions: No Action biotin 800 mcg Tablet 800 mcg PO DAILY RF: 0 ascorbic acid (vitamin C) [Vitamin C] 500 mg Tablet 500 mg PO DAILY RF: 0 ferrous sulfate 325 mg (65 mg iron) Tablet 325 mg PO DAILY RF: 0 quetiapine 50 mg Tablet 12.5 mg PO BEDTIME RF: 0 clonazepam 1 mg tablet 0.5 mg PO BEDTIME RF: 0 cephalexin 500 mg capsule 500 mg PO Q8H 10 Days Qty: 30 RF: 0 Stand Alone Forms: Work/School Release Interventions: ED Discharge Assessment Last Done: 11/17/20 17:27 Discharge Date/Time: 11/17/20 17:29
== END 2020-11-17 17:29 | disposition home or self-care (01) ==
PROVIDERS: Emergency Provider Emergency Medicine; PCP Internal Medicine
DX: T85.848A Pain due to other internal prosthetic devices, implants and grafts, initial encounter (principal); Y92.9 Unspecified place or not applicable; N63.10 Unspecified lump in the right breast, unspecified quadrant; N64.9 Disorder of breast, unspecified; Z98.82 Breast implant status
CPT/HCPCS: 99283

== ENCOUNTER → 2020-11-18 10:38 | Outpatient (BNVA) | payer MEDICAID, SELFPAY | PROVIDERS: PCP Internal Medicine; Visit Provider Surgery | DX: N64.89 Other specified disorders of breast (principal) | CPT/HCPCS: 99212 ==

== ENCOUNTER 2020-11-25 13:51 | Outpatient (REF) | payer MEDICAID, SELFPAY ==
--- NOTE | ~2020-11-25 | US_ITS ---
EXAMINATION: US DIAGNOSTIC ULTRASOUND BREAST, RIGHT CLINICAL INFORMATION: 45-year-old female status post right parietal pectoral implants earlier this year performed in [place], [place]. Status post ultrasound-guided aspiration right seroma hematoma on 10/10/2020. Follow-up seroma/hematoma since most recent imaging 10/24/2020. COMPARISON: Targeted right breast ultrasound 07/26/2020, ultrasound-guided drainage 10/10/2020. CTA chest 10/30/2020. TECHNIQUE: Ultrasound right breast is targeted to the lower breast 3:00 through 9:00 position. Grayscale imaging and color Doppler are performed. FINDINGS: The seroma/hematoma is substantially decreased from prior exam. Current measurements are 0.5 x 0.9 x 3.6 cm. Prior measurements on 10/24/2020 are 2.0 x 5.6 x 6.2 cm. There is no surrounding hyperemia on color Doppler. There is no edema tracking in the soft tissue planes. No new fluid collection. Incidental isolated simple cyst is also noted 5:00 position 3 cm from nipple measuring only 0.9 x 0.6 cm. Results are discussed with the patient at time of visit, using an metals sales representative. US/US breast RT limited IMPRESSION: Seroma/hematoma right breast substantially decreased in size from prior exam 10/24/2020. Current dimensions are 0.5 x 0.9 x 3.6 cm (prior dimensions 2.0 x 5.6 x 6.2 cm). ASSESSMENT: BI-RADS 2: Benign RECOMMENDATION: Routine annual mammography screening. This patient's information was entered into a reminder system with a target due date for their next mammogram.
== END 2020-11-25 13:52 | disposition home or self-care (01) ==
LOC: HO.MAMMO 13:51
PROVIDERS: Visit Provider Surgery
DX: N64.89 Other specified disorders of breast (principal)
CPT/HCPCS: 76642

== ENCOUNTER 2021-01-19 10:33 | Outpatient (REF) | payer MEDICAID, SELFPAY ==
[2021-01-19 15:23] LABS: CT PCR NOT DETECTED (Not Detect.); NG PCR NOT DETECTED (Not Detect.)
[2021-01-20 08:39] LABS: BV Int Neg Control Negative (Negative); BV Int Pos Control Positive (Positive)
== END 2021-01-19 10:34 | disposition home or self-care (01) ==
LOC: HO.LAB 10:33
PROVIDERS: PCP Internal Medicine; Visit Provider Advanced Practice Midwife
DX: N89.8 Other specified noninflammatory disorders of vagina (principal); Z20.2 Contact with and (suspected) exposure to infections with a predominantly sexual mode of transmission; Z79.899 Other long term (current) drug therapy
CPT/HCPCS: 87480; 87491; 87510; 87591; 87660; 99212

== ENCOUNTER 2021-07-21 13:12 | Outpatient (REF) | payer MEDICAID, SELFPAY ==
[2021-07-22 14:38] LABS: CT PCR NOT DETECTED (Not Detect.); NG PCR NOT DETECTED (Not Detect.)
[2021-07-23 09:11] LABS: BV Int Neg Control Negative (Negative); BV Int Pos Control Positive (Positive)
[2021-07-25 16:31] LABS: HPV mRNA E6/E7 rflx Not Detected (Not Detected)
== END 2021-07-21 13:13 | disposition home or self-care (01) ==
LOC: HO.LAB 13:12
PROVIDERS: Visit Provider Advanced Practice Midwife
DX: Z01.419 Encounter for gynecological examination (general) (routine) without abnormal findings (principal); Z11.51 Encounter for screening for human papillomavirus (HPV); N89.8 Other specified noninflammatory disorders of vagina; Z20.2 Contact with and (suspected) exposure to infections with a predominantly sexual mode of transmission; Z98.890 Other specified postprocedural states
CPT/HCPCS: 87480; 87491; 87510; 87591; 87624; 87660; 88142

== ENCOUNTER 2021-10-10 22:33 | Emergency (ER) | payer MEDICAID, SELFPAY ==
[2021-10-10 23:00] VITALS: BP 147/99; PULSE 73; RESP 15; TEMP 35.9; O2SAT 98; BMI 58.6
[2021-10-10 23:09] LABS: Appearance Urine CLOUDY; Color Urine DK YELLOW; Glucose Urine UA NEG (NEG); Leukocyte Esterase Urine 1+ (NEG); Nitrite Urine POS (NEG); Specific Gravity - Urine 1.025 (1.005-1.025); Urine Blood 3+ (NEG); Urine Ketones NEG (NEG); Urine Protein 1+ MG/DL (NEG-TRACE)
[2021-10-10 23:15] LABS: Bacteria Urine 2+ /LPF; RBC Urine 50-75 /HPF (0); Squamous Epithelial Cell Urine 1+ /LPF
--- NOTE | 2021-10-10 23:35 | ED.FEMALEGU ---
HPI - Female Genitourinary General Chief complaint: Urogenital-Female Stated complaint: UTI Source: patient Mode of arrival: ambulatory Limitations: language barrier History of Present Illness HPI Narrative: 45-year-old female presents with urinary symptoms. MD elicited complaint: dysuria and UTI Pertinent past history: recurrent UTIs Onset (ago): day(s) (4) Location of symptoms: urethra Severity: similar to previous episodes Female Urogenital Radiation: Non-Radiating Severity scale (1-10): 6 Quality of pain: burning Consistency: intermittent Vaginal discharge: none Vaginal bleeding: none Urinary symptoms: Dysuria, Urgency, Frequency and Foul Smelling Urine Exacerbating factors: urination Relieving factors: none Associated symptoms: denies other symptoms Treatment prior to arrival: none Sexual activity: Yes Patient : No Related Data Home Medications Medication Instructions Recorded Confirmed clonazepam 1 mg tablet 0.5 mg PO BEDTIME 06/27/20 07/21/21 ascorbic acid (vitamin C) 500 mg 500 mg PO DAILY 10/10/20 07/21/21 tablet (Vitamin C) biotin 800 mcg tablet 800 mcg PO DAILY 10/10/20 07/21/21 quetiapine 50 mg tablet 12.5 mg PO BEDTIME 10/10/20 07/21/21 Previous Rx's Medication Instructions Recorded metronidazole 500 mg tablet 500 mg PO Q12H #14 tab 07/21/21 cefuroxime axetil 500 mg tablet 500 mg PO Q12H 7 Days #14 tab 10/10/21 phenazopyridine 200 mg tablet 200 mg PO TID PRN #9 tab 10/10/21 (Pyridium) Allergies Allergy/AdvReac Type Severity Reaction Status Date / Time No Known Allergies Allergy Verified 07/21/21 13:16 Review of Systems Review of Systems: Constitutional: No Fever, No Chills ENT/Mouth: No sore throat Eyes: No Eye Pain, No Swelling, No Redness Cardiovascular: No Chest Pain, No SOB Respiratory: No Cough, No Sputum, No Wheezing Gastrointestinal: positive Nausea, positive Vomiting, No Diarrhea, positive abdominal pain Genitourinary: positive Dysuria, positive urinary frequency, positive Hematuria, no Flank Pain, positive hesitancy Musculoskeletal: No joint pain, No Myalgias Skin: No Skin Lesions, No rash Neuro: No Weakness, No Numbness, No Headache Psych: No Anxiety/Panic, No Depression Heme/Lymph: No Bruising, No Lymphadenopathy Endocrine: No Polyuria, No Polydipsia Yes all other systems are reviewed and are negative [facility] Past Medical History Attestation statement: The following information was validated with the patient. Source: old records reviewed Medical History Anxiety Depression Surgical History H/O breast augmentation History of abdominal surgery History of endometrial ablation Hx of tubal ligation Family History Family History Father HTN (hypertension) Mother HTN (hypertension) Social History Social History Alcohol intake: never Advance Directives: No Patient : No service: No Current occupational status: unemployed Gender identity: Female Physical Exam Vital Signs: Vital Signs: Last Vital Signs Temp 96.7 F L 10/10/21 23:00 Pulse 73 10/10/21 23:00 Resp 15 10/10/21 23:00 BP 147/99 H 10/10/21 23:00 Pulse Ox 98 10/10/21 23:00 BMI result Body Mass Index 58.6 Appearance: Alert. Oriented X3. No acute distress. Eyes: Pupils equal, round and reactive to light. ENT: Pharynx normal. Neck: Normal inspection. Neck supple. CVS: Normal heart rate and rhythm. Pulses normal. Respiratory: No respiratory distress. Breath sounds normal. Abdomen: Soft and nontender. Skin: Skin warm and dry. Normal skin color. Normal skin turgor. Extremities: No lower extremity edema. Gait well balanced well coordinated. Neuro: No motor deficit. No sensory deficit. Cranial nerves 2-12 intact Course Course Course Narrative: 45-year-old female presents with urinary tract symptoms. Patient reports recurrent UTIs. Patient's was at bedside and was asked to leave so we could speak privately. Patient does have concerns that she may have a sexually transmitted infection because she is not sure if her is faithful. She has respectfully declining pelvic exam at this time. I will treat for CT NG with azithromycin and ceftriaxone. For UTI, which is positive on urinalysis I will give cefuroxime 500 mg and Pyridium for pain and dysuria. Patient is afebrile, appears nontoxic, patient is hypertensive. Sepsis is not indicated at this time. Heart rate is 73. Even unlabored respirations. Patient appears well hourly sign language interpreter utilized for all correspondence. Google translate utilized for discharge instructions.Patient verbalized understanding of and agrees to plan of care to discharge home. Verbalized understanding of signs and symptoms indicating need for emergent intervention MDM - Female Genitourinary Differential Diagnosis Differential diagnosis: Likely urinary tract infection and cystitis Medical Records Attestation: I reviewed the patient's medical records. Lab Data Attestation: I reviewed the patient's lab results. Labs: Lab Results 10/10/21 Range/Units 22:57 Urine Color DK YELLOW Urine Appearance CLOUDY Urine pH 7.0 (5.0-8.0) Ur Specific [place] 1.025 (1.005-1.025) Urine Protein 1+ H (NEG-TRACE) MG/DL Urine Glucose (UA) NEG (NEG) MG/DL Urine Ketones NEG (NEG) MG/DL Urine Blood 3+ H (NEG) Urine Nitrite POS H (NEG) Ur Leukocyte Esterase 1+ H (NEG) Urine RBC 50-75 H (0) /HPF Urine WBC 76-150 H (0-4) /HPF Ur Squamous Epith Cells 1+ /LPF Urine Bacteria 2+ /LPF Discharge Plan Discharge Clinical Impression: Urinary tract infection Patient Disposition: Home, Self-Care Instructions: Urinary Tract Infection in Women (DC) Additional Instructions: You were evaluated for genitourinary infection. Please take cefuroxime 500 mg twice a day for the next 7 days. Please take Pyridium as needed for bladder spasms and burning pain. This medication will turn your urine bright orange. This is a normal side effect of this medication Drink plenty of fluids. Thank you for choosing this emergency department for evaluation. Please follow-up with primary care physician as needed. Return to the emergency department for any new, concerning, or worsening symptoms. Prescriptions: New cefuroxime axetil 500 mg tablet 500 mg PO Q12H 7 Days Qty: 14 0RF phenazopyridine [Pyridium] 200 mg tablet 200 mg PO TID PRN (Reason: pain) Qty: 9 0RF No Action biotin 800 mcg Tablet 800 mcg PO DAILY 0RF ascorbic acid (vitamin C) [Vitamin C] 500 mg Tablet 500 mg PO DAILY 0RF quetiapine 50 mg Tablet 12.5 mg PO BEDTIME 0RF clonazepam 1 mg tablet 0.5 mg PO BEDTIME 0RF metronidazole 500 mg tablet 500 mg PO Q12H Qty: 14 1RF Rx Instructions: melly 2 veces al maria elena por 7 rust por bacterial vaginosis
[2021-10-11] MEDS: cefTRIAXone sodium 500 MG, Lidocaine HCl 1 % MPF 1 ML IM (00:31)
[2021-10-11] MEDS: Azithromycin 500 MG TABLET 1000 MG PO (00:31)
[2021-10-11] MEDS: Phenazopyridine HCL 200 MG TABLET PO (00:31)
[2021-10-11 02:40] LABS: CT PCR NOT DETECTED (Not Detect.); NG PCR NOT DETECTED (Not Detect.)
== END 2021-10-11 01:01 | disposition home or self-care (01) ==
PROVIDERS: Nurse Practitioner Family; Emergency Provider Emergency Medicine Emergency Medical Services; PCP Internal Medicine
DX: N39.0 Urinary tract infection, site not specified (principal); R11.2 Nausea with vomiting, unspecified; I10 Essential (primary) hypertension; Z87.440 Personal history of urinary (tract) infections
CPT/HCPCS: 81001; 87086; 87491; 87591; 96372; 99284; J0696

== ENCOUNTER 2021-10-16 13:50 | Outpatient (REF) | payer MEDICAID, SELFPAY ==
[2021-10-17 11:16] LABS: BV Int Neg Control Negative (Negative); BV Int Pos Control Positive (Positive)
== END 2021-10-16 13:51 | disposition home or self-care (01) ==
LOC: HO.LNP 13:50
PROVIDERS: PCP Internal Medicine; Visit Provider Advanced Practice Midwife
DX: N89.8 Other specified noninflammatory disorders of vagina (principal); B37.3 Candidiasis of vulva and vagina
CPT/HCPCS: 87480; 87510; 87660; 99212

== ENCOUNTER 2021-10-16 15:42 | Outpatient (REF) | payer MEDICAID, SELFPAY | END 2021-10-16 15:43 | disposition home or self-care (01) | LOC: HO.LAB 15:42 | PROVIDERS: Visit Provider Advanced Practice Midwife | DX: Z13.89 Encounter for screening for other disorder (principal) ==

== ENCOUNTER 2021-12-16 10:54 | Emergency (ER) | payer MEDICAID, SELFPAY ==
[2021-12-16 10:58] VITALS: BP 125/84; PULSE 84; RESP 18; TEMP 36.4; O2SAT 100; BMI 21.2
[2021-12-16 12:28] LABS: Appearance Urine CLOUDY; Color Urine ORANGE; Leukocyte Esterase Urine 3+ (NEG); Nitrite Urine POS (NEG); Specific Gravity - Urine 1.025 (1.005-1.025); UACC Culture Trigger YES; Urine Blood 3+ (NEG); Urine Protein 3+ MG/DL (NEG-TRACE)
[2021-12-16 12:40] LABS: Bacteria Urine TRACE /LPF; RBC Urine 30-49 /HPF (0); Squamous Epithelial Cell Urine 2+ /LPF; WBC Urine TNTC /HPF (0-4)
[2021-12-16] MEDS: cephALEXin 500 MG CAPSULE PO (13:09)
--- NOTE | 2021-12-16 16:49 | ED.FEMALEGU ---
HPI - Female Genitourinary General Chief complaint: Urogenital-Female Stated complaint: UTI Time Seen by Provider: 12/16/21 12:46 Source: patient Mode of arrival: ambulatory Limitations: language barrier History of Present Illness HPI Narrative: 46-year-old female presents for 3 days of urinary burning, frequency, or urgency. Patient has mild back pain. No fevers, no STD concerns. Patient is taking Pyridium, which is not helping MD elicited complaint: dysuria and UTI Onset (ago): day(s) (3) Related Data Home Medications Medication Instructions Recorded Confirmed clonazepam 1 mg tablet 0.5 mg PO BEDTIME 06/27/20 10/16/21 biotin 800 mcg tablet 800 mcg PO DAILY 10/10/20 10/16/21 quetiapine 50 mg tablet 12.5 mg PO BEDTIME 10/10/20 10/16/21 Previous Rx's Medication Instructions Recorded metronidazole 500 mg tablet 500 mg PO Q12H #14 tabs 07/21/21 cefuroxime axetil 500 mg tablet 500 mg PO Q12H 7 days #14 tabs 10/10/21 phenazopyridine 200 mg tablet 200 mg PO TID PRN pain #9 tabs 10/10/21 (Pyridium) fluconazole 150 mg tablet 150 mg PO Q3D 2 doses #2 tabs 10/16/21 miconazole nitrate 2 % vaginal 1 appful vaginal BEDTIME 7 days 10/16/21 cream (Miconazole-7) #45 grams cephalexin 500 mg capsule 500 mg PO QID 7 days #28 caps 12/16/21 Allergies Allergy/AdvReac Type Severity Reaction Status Date / Time No Known Allergies Allergy Verified 10/16/21 14:24 Review of Systems Constitutional: Constitutional: Denies body ache(s), Denies chills, Denies fatigue, Denies fever(s), Denies headache(s), Denies malaise and Denies weakness Eyes: Eyes: Denies diplopia ENT: Denies vertigo, Denies dizziness, Denies otalgia, Denies headache(s), Denies mouth pain, Denies post nasal drip, Denies sinus pain, Denies sinus pressure, Denies sore throat and Denies throat swelling Cardiovascular: Cardiovascular: Denies chest pain, Denies syncope, Denies leg edema, Denies lightheadedness, Denies Loss of Consciousness, Denies palpitations and Denies dyspnea Respiratory: Respiratory: Denies chest congestion, Denies cough and Denies dyspnea Gastrointestinal: Gastrointestinal: Denies abdominal pain, Denies hematochezia, Denies constipation, Denies diarrhea, Denies nausea and Denies vomiting Genitourinary: Genitourinary: Denies genital pruritis, Denies genital lesions, Denies dyspareunia, Reports dysuria, Denies pelvic pain, Denies sexual dysfunction, Denies flank pain, Denies urinary incontinence, Denies urinary hesitancy, Reports urinary urgency, Denies vaginal discharge and Denies vaginal odor Musculoskeletal: Musculoskeletal: Reports no additional musculoskeletal complaints Neurologic: Denies confusion, Denies vertigo, Denies dizziness, Denies syncope, Denies headache(s) and Denies weakness Psychiatric: Psychiatric: Denies anxiety, Denies confusion and Denies depression Endocrine: Endocrine: Denies fatigue and Denies palpitations Allergic/Immunologic: Allergic/Immunologic: Denies throat swelling PMFSH Past Medical History Medical History Anxiety Depression Surgical History H/O breast augmentation History of abdominal surgery History of endometrial ablation Hx of tubal ligation Family History Family History Father HTN (hypertension) Mother HTN (hypertension) Social History Social History Alcohol intake: never Advance Directives: No Advance Directives Information Provided: No service: No Current occupational status: unemployed Gender identity: Female Physical Exam Vital Signs: Vital Signs: Last Vital Signs Temp 97.5 F 12/16/21 10:58 Pulse 84 12/16/21 10:58 Resp 18 12/16/21 10:58 BP 125/84 12/16/21 10:58 Pulse Ox 100 12/16/21 10:58 O2 Del Method 12/16/21 10:58 BMI result Body Mass Index 21.2 Const: General: No confusion Nutritional Appearance: well nourished Orientation/consciousness: No confusion Limitations: no limitations Eyes: Conjunctivae: conjunctivae normal Pupils: Equal, round and reactive pupils present EOM: EOMs intact bilaterally Neck: Neck: Yes full ROM, Yes no lymphadenopathy and Yes supple Resp: Effort & Inspection: normal respiratory effort and able to speak in complete sentences Auscultation: clear to auscultation bilaterally, no crackles, no rales, no rhonchi and no wheezes Cardio: Rate: regular rate Rhythm: regular rhythm Heart sounds: S1 normal heart sound present and S2 normal heart sound present GI: Inspection: Yes normal to inspection Palpation (GI): Soft to palpation, nontender, no guarding and not rigid Percussion: Yes normal to percussion Auscultation: normal bowel sounds : General: Yes no CVA tenderness Back/Spine/Pelvis: Back: no CVA tenderness Skin: General skin exam: no rashes or lesions noted Neuro: General: No confusion Cranial nerves: Yes Equal, round and reactive pupils present Extrem: General: Yes normal to inspection and Yes full ROM Psych: Appearance: grossly normal Affect: normal affect Attitude: cooperative Thought process: Normal thought process present Course Course Course Narrative: 46-year-old female who has 3 days of dysuria, urinary frequency, urinary urgency, is afebrile with no CVA tenderness urine shows infection, will treat with cephalexin, gave return precautions of back pain and fever, patient verbalized agreement and understanding the plan [facility] - Female Genitourinary Lab Data Labs: Lab Results 12/16/21 Range/Units 12:20 Urine Color ORANGE A Urine Appearance CLOUDY Urine pH 5.0 (5.0-8.0) Ur Specific [place] 1.025 (1.005-1.025) Urine Protein 3+ H (NEG-TRACE) MG/DL Urine Glucose (UA) SEE NOTE (NEG) MG/DL Urine Ketones SEE NOTE (NEG) MG/DL Urine Blood 3+ H (NEG) Urine Nitrite POS H (NEG) Ur Leukocyte Esterase 3+ H (NEG) Urine RBC 30-49 H (0) /HPF Urine WBC TNTC H (0-4) /HPF Ur Squamous Epith Cells 2+ /LPF Urine Bacteria TRACE /LPF Discharge Plan Discharge Clinical Impression: UTI (urinary tract infection) Patient Disposition: Home, Self-Care Instructions: Urinary Tract Infection in Women (ED) Additional Instructions: you have a urinary tract infection, I have prescribed antibiotics to your pharmacy, please return if you have fevers, or back pain, or any other new or concerning symptoms tiene vita infecci?n del tracto urinario, le he recetado antibi?ticos a calixto farmacia, regrese si tiene fiebre, dolor de espalda o cualquier otro s?ntoma nuevo o preocupante Prescriptions: New cephalexin 500 mg capsule 500 mg PO QID 7 Days Qty: 28 0RF No Action biotin 800 mcg Tablet 800 mcg PO DAILY quetiapine 50 mg Tablet 12.5 mg PO BEDTIME cefuroxime axetil 500 mg tablet 500 mg PO Q12H 7 Days Qty: 14 0RF phenazopyridine [Pyridium] 200 mg tablet 200 mg PO TID PRN (Reason: pain) Qty: 9 0RF clonazepam 1 mg tablet 0.5 mg PO BEDTIME miconazole nitrate [Miconazole-7] 2 % cream 1 appful vaginal BEDTIME 7 Days Qty: 45 4RF Rx Instructions: may use for symptoms of yeast infection ( vag itching and burning) fluconazole 150 mg tablet 150 mg PO Q3D 0 Days Qty: 2 1RF Rx Instructions: may repeat second dose 72 hrs after first dose if symptoms persist, for severe vaginal itching of yeast infection metronidazole 500 mg tablet 500 mg PO Q12H Qty: 14 1RF Rx Instructions: melly 2 veces al maria elena por 7 rust por bacterial vaginosis Interventions: ED Discharge Assessment Last Done: 12/16/21 13:14 Discharge Date/Time: 12/16/21 13:16
== END 2021-12-16 13:16 | disposition home or self-care (01) ==
PROVIDERS: Emergency Provider Emergency Medicine; PCP Internal Medicine
DX: N39.0 Urinary tract infection, site not specified (principal)
CPT/HCPCS: 81001; 87086; 99283

== ENCOUNTER 2022-01-04 08:55 | Emergency (ER) | payer MEDICAID, SELFPAY ==
[2022-01-04 09:18] VITALS: BP 128/86; PULSE 71; RESP 18; TEMP 36.6; O2SAT 96; BMI 29.7
--- NOTE | 2022-01-04 09:41 | ED_ITS ---
HPI - Female Genitourinary General Chief complaint: Urogenital-Female Stated complaint: urine infection Time Seen by Provider: 01/04/22 09:35 Source: patient Mode of arrival: ambulatory Limitations: language barrier (Nigerian-speaking) History of Present Illness HPI Narrative: 46-year-old female with a past medical history of anxiety, depression and recurrent UTIs presenting to the ED with complaints of suprapubic abdominal cramping/pain with associated dysuria/increased urinary frequency/urgency for the past 2-3 weeks. Reports that she was seen here on 12/16/2021 and diagnosed with UTI and given Keflex 500 mg to be taken 4 times a day and she reports she took it for 7 days and she did not feel like they work properly she still had residual symptoms and now her symptoms worsened in the past 2-3 days. She r eports yesterday she had some lower back/right flank pain although at this time she denies any of that. She reports that she does not have any vaginal discharge and she does not believe she has an STD and does not want to be tested for an STD. She denies any fevers, chills, dizziness, headaches, neck pain/stiffness, trouble swallowing or breathing, chest pain or shortness of breath, back pain, flank pain, radiation of the suprapubic abdominal pain, abnormal rashes or lesions to the vaginal area, abnormal vaginal discharge, hematuria, diarrhea constipation, recent travel or sick contacts or any other symptoms complaints or concerns at this time. MD elicited complaint: dysuria and UTI Pertinent past history: recurrent UTIs Onset (ago): week(s) (2-3 ) Location of symptoms: suprapubic Severity: mild Female Urogenital Radiation: Non-Radiating Quality of pain: cramping Consistency: constant and progressively worsening Vaginal discharge: none Vaginal bleeding: none Urinary symptoms: Dysuria, Urgency, Frequency and Difficulty Urinating Exacerbating factors: urination Relieving factors: none Associated symptoms: denies other symptoms Treatment prior to arrival: none Sexual activity: Yes Patient : No Related Data Home Medications Medication Instructions Recorded Confirmed clonazepam 1 mg tablet 0.5 mg PO BEDTIME 06/27/20 10/16/21 biotin 800 mcg tablet 800 mcg PO DAILY 10/10/20 10/16/21 quetiapine 50 mg tablet 12.5 mg PO BEDTIME 10/10/20 10/16/21 Previous Rx's Medication Instructions Recorded metronidazole 500 mg tablet 500 mg PO Q12H #14 tabs 07/21/21 cefuroxime axetil 500 mg tablet 500 mg PO Q12H 7 days #14 tabs 10/10/21 phenazopyridine 200 mg tablet 200 mg PO TID PRN pain #9 tabs 10/10/21 (Pyridium) fluconazole 150 mg tablet 150 mg PO Q3D 2 doses #2 tabs 10/16/21 miconazole nitrate 2 % vaginal 1 appful vaginal BEDTIME 7 days 10/16/21 cream (Miconazole-7) #45 grams cephalexin 500 mg capsule 500 mg PO QID 7 days #28 caps 12/16/21 nitrofurantoin 100 mg PO BID 7 days #14 caps 01/04/22 monohydrate/macrocrystals 100 mg capsule (Macrobid) phenazopyridine 100 mg tablet 100 mg PO TID PRN pain 6 doses #6 01/04/22 (Pyridium) tabs Allergies Allergy/AdvReac Type Severity Reaction Status Date / Time No Known Allergies Allergy Verified 01/04/22 09:23 Review of Systems Review of Systems: Constitutional : No Fever, No Chills ENT/Mouth : No sore throat, No Rhinorrhea Eyes: No Eye Pain, No Redness Cardiovascular : No Chest Pain, No SOB Respiratory : No Cough, No Sputum, No Wheezing Gastrointestinal : No Nausea, No Vomiting, No Diarrhea, positive abdominal pain Genitourinary : + dysuria/urinary frequency/urgency, No irregular bleeding, No pelvic pain, No vaginal discharge, no hematuria Musculoskeletal : No Myalgias Skin : No rash Neuro : No Weakness, No Headache Psych : No Anxiety/Panic, No Depression Heme/Lymph: No bruising, No Lymphadenopathy Endocrine : No Polyuria, No Polydipsia Yes all other systems are reviewed and are negative [facility] Past Medical History Attestation statement: The following information was validated with the patient. Source: old records reviewed and nursing notes reviewed Surgical History H/O breast augmentation History of abdominal surgery Hx of tubal ligation Family History Family History Father HTN (hypertension) Mother HTN (hypertension) Social History Social History Alcohol intake: never Advance Directives: No Advance Directives Information Provided: No Patient : No service: No Current occupational status: unemployed Gender identity: Female Physical Exam Vital Signs: Vital Signs: Last Vital Signs Temp 98 F 01/04/22 09:18 Pulse 71 01/04/22 09:18 Resp 18 01/04/22 09:18 BP 128/86 01/04/22 09:18 Pulse Ox 96 01/04/22 09:18 O2 Del Method 01/04/22 09:18 BMI result Body Mass Index 29.7 vital signs have been reviewed as normal and appeared to be correct. Blood pressure normal. Heart rate normal. Respiration rate normal. Temperature normal. Oxygen saturation normal. Appearance: Alert. Oriented X3. No acute distress. Head: Normal external exam. Normocephalic. Eyes: PERRLA. EOMI. Conjunctiva and sclera normal. Eyelids normal. ENT: Pharynx normal. Uvula midline. Moist mucous membranes. No trismus noted. No drooling noted. No muffled voice noted. Neck: Normal inspection. Neck supple. FROM. No adenopathy. No meningeal signs. CVS: Normal heart rate and rhythm. Heart sound normal. No murmurs noted. Pulses normal throughout. Respiratory: No respiratory distress. Painless inspiration. Breath sounds normal. No wheezes/rales/rhonchi noted. Chest nontender. No accessory muscle usage noted or decreased air movement noted. Abdomen: Soft and mild suprapubic abdominal tenderness. Nondistended. No guarding. No rigidity. Bowel sounds normal in all 4 quadrants. No distention noted. No organomegaly noted. No visible injury noted. No rebound tenderness. Negative Rovsing sign. Negative obturator's sign. Negative psoas sign. Negative Singh sign. Back: No CVA tenderness. Full range of motion noted. Skin: Skin warm and dry. Normal skin color. Normal skin turgor. No rashes/lesions/lacerations noted. Extremities: Extremities exhibit normal range of motion. Extremities nontender. Neuro: Oriented X 3. No motor deficit. No sensory deficit. Reflexes normal. Normal steady gait. CN's II-XII intact bilaterally? Course Course Course Narrative: 9:45am - 46-year-old female with a past medical history of anxiety, depression and recurrent UTIs presenting to the ED with complaints of suprapubic abdominal cramping/pain with associated dysuria/increased urinary frequency/urgency for the past 2-3 weeks. Reports that she was seen here on 12/16/2021 and diagnosed with UTI and given Keflex 500 mg to be taken 4 times a day and she reports she took it for 7 days and she did not feel like they work properly she still had residual symptoms and now her symptoms worsened in the past 2-3 days. She reports yesterday she had some lower back/right flank pain although at this time she denies any of that. She reports that she does not have any vaginal discharge and she does not believe she has an STD and does not want to be tested for an STD. I reviewed the patient's urine culture on 12/16/2021 <10,000 cfu/ml. Although she did have positive nitrates on 12/16/2021. On exam patient has mild suprapubic abdominal tenderness. No flank pain or CVA tenderness noted. She is denying any abnormal discharge or thoughts of STDs therefore vaginal exam deferred at this time. Will obtain a UA and UHCG and re- evaluate. Reevaluation(s) Reevaluation #1: - UA with 3+ blood and 3+ leukocytes and white blood cells otherwise negative nitrates. Therefore will DC home with Macrobid and symptomatic treatment instructions return if any new or worsening symptoms. Patient understands agrees with this plan. Time: 10:25 [facility] - Female Genitourinary Medical Records Attestation: I reviewed the patient's medical records. Lab Data Attestation: I reviewed the patient's lab results. Labs: Lab Results 01/04/22 01/04/22 Range/Units 09:56 09:56 Urine Color YELLOW Urine Appearance CLOUDY Urine pH 6.0 (5.0-8.0) Ur Specific [place] 1.020 (1.005-1.025) Urine Protein TRACE (NEG-TRACE) MG/DL Urine Glucose (UA) NEG (NEG) MG/DL Urine Ketones NEG (NEG) MG/DL Urine Blood 3+ H (NEG) Urine Nitrite NEG (NEG) Ur Leukocyte Esterase 3+ H (NEG) Urine Test NEGATIVE (NEGATIVE) Discharge Plan Discharge Clinical Impression: UTI (urinary tract infection) Patient Disposition: Home, Self-Care Instructions: Urinary Tract Infection in Women (ED) Prescriptions: New nitrofurantoin monohyd/m-cryst [Macrobid] 100 mg capsule 100 mg PO BID 7 Days Qty: 14 0RF Rx Instructions: must administer with a meal/food phenazopyridine [Pyridium] 100 mg tablet 100 mg PO TID PRN (Reason: pain) Qty: 6 0RF No Action biotin 800 mcg Tablet 800 mcg PO DAILY quetiapine 50 mg Tablet 12.5 mg PO BEDTIME cefuroxime axetil 500 mg tablet 500 mg PO Q12H 7 Days Qty: 14 0RF phenazopyridine [Pyridium] 200 mg tablet 200 mg PO TID PRN (Reason: pain) Qty: 9 0RF cephalexin 500 mg capsule 500 mg PO QID 7 Days Qty: 28 0RF clonazepam 1 mg tablet 0.5 mg PO BEDTIME miconazole nitrate [Miconazole-7] 2 % cream 1 appful vaginal BEDTIME 7 Days Qty: 45 4RF Rx Instructions: may use for symptoms of yeast infection ( vag itching and burning) fluconazole 150 mg tablet 150 mg PO Q3D 0 Days Qty: 2 1RF Rx Instructions: may repeat second dose 72 hrs after first dose if symptoms persist, for severe vaginal itching of yeast infection metronidazole 500 mg tablet 500 mg PO Q12H Qty: 14 1RF Rx Instructions: melly 2 veces al maria elena por 7 rust por bacterial vaginosis Referrals: Physician,Unknown J [Primary Care Provider] - 2 days (your pcp) Print Language: Nigerian
[2022-01-04 10:13] LABS: Appearance Urine CLOUDY; Color Urine YELLOW; Glucose Urine UA NEG (NEG); Leukocyte Esterase Urine 3+ (NEG); Nitrite Urine NEG (NEG); UACC Culture Trigger YES; Urine Blood 3+ (NEG); Urine Ketones NEG (NEG); Urine Protein TRACE MG/DL (NEG-TRACE)
[2022-01-04 10:18] LABS: UPreg QC Valid YES; Urine Pregnancy NEGATIVE (NEGATIVE)
[2022-01-04 10:27] LABS: WBC Urine TNTC /HPF (0-4)
[2022-01-04] MEDS: Nitrofurantoin Monohyd/M-Cryst 100 MG CAPSULE PO (10:36)
[2022-01-04] MEDS: Phenazopyridine HCL 100 MG TABLET PO (10:36)
== END 2022-01-04 10:43 | disposition home or self-care (01) ==
PROVIDERS: Emergency Provider Emergency Medicine Emergency Medical Services
DX: N39.0 Urinary tract infection, site not specified (principal); R35.0 Frequency of micturition; R30.0 Dysuria; Z79.899 Other long term (current) drug therapy
CPT/HCPCS: 81001; 81003; 81025; 87086; 99283; 99284

== ENCOUNTER 2022-01-10 11:44 | Emergency (ER) | payer MEDICAID, SELFPAY | END 2022-01-10 13:00 | disposition left against medical advice (07) | PROVIDERS: Emergency Provider Emergency Medicine | DX: M54.2 Cervicalgia (principal) ==

== ENCOUNTER 2022-02-07 14:22 | Emergency (ER) | payer MEDICAID, SELFPAY ==
[2022-02-07 14:37] VITALS: BP 127/88; PULSE 73; RESP 18; TEMP 36.3; O2SAT 98; BMI 26.6
[2022-02-07 15:06] LABS: COVID-19 Test Negative (Negative); IDNOW Serial# 16C4AD1C; Influenza A Negative (Negative); Influenza B2 Negative (Negative)
--- NOTE | 2022-02-07 15:29 | ED.GENADULT ---
HPI - General Adult General Chief complaint: General Medical Stated complaint: Sore throat Time Seen by Provider: 02/07/22 14:29 Source: patient Mode of arrival: ambulatory Limitations: no limitations History of Present Illness HPI narrative: 46 yo female with history of anxiety/ depression, s/p tonsillectomy in the past who presents to the ER for evaluation of a sore throat for the last 3 weeks. She reports it is worse at night and when she 1st wakes up in the morning. She is able to tolerate regular PO and has only some minor discomfort with swallowing during the day. She reports swollen lymph nodes in her neck. Her mother from [place] sent her 7 day supply of ampicillin which she took with some improvement in the sore throat. When she stopped taking the antibiotic the sore throat started to get a little bit worse again. She also had some nasal congestion, no fever no chills, no cough, no shortness of breath, no chest pain. No dental pain. MD complaint: Sore throat Onset (ago): week(s) (3) Location: mouth Radiation: non-radiation Severity: moderate Severity scale (1-10): 5 Quality: sharp Pain Consistency: intermittent Exacerbating factors: eating and other ( night and morning) Associated symptoms: denies other symptoms Treatments prior to arrival: none Related Data Home Medications Medication Instructions Recorded Confirmed clonazepam 1 mg tablet 0.5 mg PO BEDTIME 06/27/20 10/16/21 biotin 800 mcg tablet 800 mcg PO DAILY 10/10/20 10/16/21 quetiapine 50 mg tablet 12.5 mg PO BEDTIME 10/10/20 10/16/21 Previous Rx's Medication Instructions Recorded metronidazole 500 mg tablet 500 mg PO Q12H #14 tabs 07/21/21 cefuroxime axetil 500 mg tablet 500 mg PO Q12H 7 days #14 tabs 10/10/21 phenazopyridine 200 mg tablet 200 mg PO TID PRN pain #9 tabs 10/10/21 (Pyridium) fluconazole 150 mg tablet 150 mg PO Q3D 2 doses #2 tabs 10/16/21 miconazole nitrate 2 % vaginal 1 appful vaginal BEDTIME 7 days 10/16/21 cream (Miconazole-7) #45 grams cephalexin 500 mg capsule 500 mg PO QID 7 days #28 caps 12/16/21 nitrofurantoin 100 mg PO BID 7 days #14 caps 01/04/22 monohydrate/macrocrystals 100 mg capsule (Macrobid) phenazopyridine 100 mg tablet 100 mg PO TID PRN pain 6 doses #6 01/04/22 (Pyridium) tabs fluticasone propionate 50 1 spray intranasal DAILY #16 grams 02/07/22 mcg/actuation nasal spray,suspension (Flonase Allergy Relief) Allergies Allergy/AdvReac Type Severity Reaction Status Date / Time No Known Allergies Allergy Verified 02/07/22 14:36 Review of Systems Review of Systems: Constitutional: No Fever, No Chills ENT/Mouth: + sore throat, No Rhinorrhea, No Swallowing Difficulty, +Nasal congestion Eyes: No Eye Pain, No Swelling, No Redness, No discharge Cardiovascular: No Chest Pain, No SOB, No Orthopnea, No Edema Respiratory: No Cough, No Sputum, No Wheezing, No dyspnea Gastrointestinal: No Nausea, No Vomiting, No Diarrhea, No abdominal Pain Genitourinary: No Dysuria, No Urinary Frequency, No Hematuria Musculoskeletal: No joint pain, No Myalgias Skin: No Skin Lesions, No rash Neuro: No Weakness, No Numbness, No Dizziness, No Headache Psych: No Anxiety/Panic, No Depression Heme/Lymph: No Bruising, + Lymphadenopathy PMFSH Past Medical History Surgical History H/O breast augmentation History of abdominal surgery Hx of tubal ligation Family History Family History Father HTN (hypertension) Mother HTN (hypertension) Social History Social History Alcohol intake: never Advance Directives: No Advance Directives Information Provided: No service: No Current occupational status: unemployed Gender identity: Female Physical Exam ED Vital Signs: Vital Signs - 24 hr 02/07/22 14:37 Temperature 97.4 F Pulse Rate 73 Respiratory Rate 18 Blood Pressure 127/88 Pulse Oximetry 98 Oxygen Delivery Method Room Air BMI result Body Mass Index 26.6 Appearance: Alert. Oriented X3. No acute distress. HEENT: normal inspection. posterior oropharynx with mild generalized erythema, moist mucous membranes, tonsils surgically absent. Uvula midline. Normal voice, handling secretions normally. Neck: Normal inspection, no anterior neck swelling. No appreciated palpable lymphadenopathy. CVS: Normal heart rate and rhythm. Pulses normal. Respiratory: No respiratory distress. Skin: Skin warm and dry. Normal skin color. Normal skin turgor. No rashes. Extremities: Normal inspection x4, normal range of motion, no swelling. Neuro: Oriented X 3. Grossly normal, nonfocal Course Course Course Narrative: 46-year-old female presents to the ER with 3 weeks of a sore throat. No other URI symptoms. Denies history of seasonal allergies. Exam is unremarkable. She is negative for COVID negative for flu. She is also negative for strep throat. At this time her symptoms are most likely viral in etiology. We discussed symptomatic management and other signs and symptoms that should prompt urgent re-evaluation. At this time she is tolerating p.o. and her pain is well controlled. She is stable for discharge home. Medical Decision Making Lab Data Labs: Lab Results 02/07/22 02/07/22 02/07/22 Range/Units 14:42 14:42 15:39 COVID-19 ([facility]) Negative (Negative) COVID-19 Clin Com See Note Influenza Type A (SRI) Negative (Negative) Influenza Type B (SRI) Negative (Negative) Influenza A & B Note See Note S. pyogenes GrpA SRI Negative (Negative) Critical Care Time Critical Care Time Critical Care Time: No Discharge Plan Discharge Clinical Impression: Pharyngitis Patient Disposition: Home, Self-Care Instructions: Pharyngitis (ED) Additional Instructions: You are negative for COVID, Influenza & Strep throat. Your symptoms are most likely due to a virus and will resolve on its own with time Recommend starting warm salt water gargles 3 times per day. Use over the counter Chloraseptic spray or Cepacol lozenges Take Motrin and/or Tylenol as needed for pain If you develop new or worsening symptoms call 911 or come back to the ER for further evaluation. Prescriptions: New fluticasone propionate [Flonase Allergy Relief] 50 mcg/actuation spray,suspension 1 spray intranasal DAILY Qty: 16 0RF Rx Instructions: administer into each nostril No Action biotin 800 mcg Tablet 800 mcg PO DAILY quetiapine 50 mg Tablet 12.5 mg PO BEDTIME cefuroxime axetil 500 mg tablet 500 mg PO Q12H 7 Days Qty: 14 0RF phenazopyridine [Pyridium] 200 mg tablet 200 mg PO TID PRN (Reason: pain) Qty: 9 0RF cephalexin 500 mg capsule 500 mg PO QID 7 Days Qty: 28 0RF nitrofurantoin monohyd/m-cryst [Macrobid] 100 mg capsule 100 mg PO BID 7 Days Qty: 14 0RF Rx Instructions: must administer with a meal/food phenazopyridine [Pyridium] 100 mg tablet 100 mg PO TID PRN (Reason: pain) Qty: 6 0RF clonazepam 1 mg tablet 0.5 mg PO BEDTIME miconazole nitrate [Miconazole-7] 2 % cream 1 appful vaginal BEDTIME 7 Days Qty: 45 4RF Rx Instructions: may use for symptoms of yeast infection ( vag itching and burning) fluconazole 150 mg tablet 150 mg PO Q3D 0 Days Qty: 2 1RF Rx Instructions: may repeat second dose 72 hrs after first dose if symptoms persist, for severe vaginal itching of yeast infection metronidazole 500 mg tablet 500 mg PO Q12H Qty: 14 1RF Rx Instructions: melly 2 veces al maria elena por 7 rust por bacterial vaginosis Interventions: ED Discharge Assessment Last Done: 02/07/22 16:44 Discharge Date/Time: 02/07/22 16:45
[2022-02-07 15:58] LABS: Strep A Nucleic Acid Negative (Negative)
== END 2022-02-07 16:45 | disposition home or self-care (01) ==
PROVIDERS: Physician Assistant Medical; Emergency Provider Student in an Organized Health Care Education/Training Program
DX: J02.8 Acute pharyngitis due to other specified organisms (principal); Z20.822 Contact with and (suspected) exposure to COVID-19; Z79.899 Other long term (current) drug therapy
CPT/HCPCS: 87502; 87635; 87651; 99283

== ENCOUNTER 2022-04-13 09:54 | Outpatient (REF) | payer MEDICAID, SELFPAY ==
[2022-04-14 12:08] LABS: CT PCR NOT DETECTED (Not Detect.); NG PCR NOT DETECTED (Not Detect.)
[2022-04-14 13:29] LABS: BV Int Neg Control Negative (Negative); BV Int Pos Control Positive (Positive)
== END 2022-04-13 09:55 | disposition home or self-care (01) ==
LOC: HO.LNP 09:54
PROVIDERS: Visit Provider Advanced Practice Midwife
DX: N89.8 Other specified noninflammatory disorders of vagina (principal); Z87.440 Personal history of urinary (tract) infections
CPT/HCPCS: 87480; 87491; 87510; 87591; 87660; 99212

== ENCOUNTER 2022-05-04 10:18 | Emergency (ER) | payer MEDICAID, SELFPAY ==
[2022-05-04 10:20] VITALS: BP 123/88; PULSE 99; RESP 20; TEMP 36.7; O2SAT 98; BMI 27.9
[2022-05-04 11:19] LABS: Influenza A PCR NEGATIVE (Negative); Influenza B PCR NEGATIVE (Negative); Resp Syncy Virus RNA Qual PCR NEGATIVE (Negative); SARS COV2 PCR INHOUSE NEGATIVE (Negative)
--- NOTE | 2022-05-04 12:52 | ED.URI ---
HPI - URI/Sore Throat General Chief Complaint: Upper Respiratory Symptoms Stated Complaint: Nausea Head Pain Congestion Time Seen by Provider: 05/04/22 12:21 Source: patient and family Mode of arrival: ambulatory Limitations: language barrier ([place]-speaking) History of Present Illness HPI Narrative: 46yoF c PMHx of anxiety/depression, status post tonsillectomy presenting to the ER with complaints of subjective fevers, chills, fatigue, malaise, body aches, nausea, nasal congestion/rhinorrhea, sinus pressure pain, intermittent frontal headaches, ear pain, sore throat and a cough for the past 3 days worse today. Reports she has been taking [id number] medication no symptomatic relief. Denies any measured fevers, dizziness, neck pain/stiffness, trouble swallowing or breathing, chest pain or shortness of breath, vomiting, back pain, flank pain, abdominal pain, diarrhea, recent travel or sick contacts that she is aware of or any other symptoms complaints or concerns at this time. MD elicited complaint: fever, cough, sore throat, rhinorrhea, nasal congestion and sinus pain Pertinent past history: other (See above) Onset (ago): day(s) (3) Consistency: constant and progressively worsening Severity: moderate Description of mucous: clear, watery, yellow and green Able to tolerate fluids by mouth: Yes Exacerbating factors: swallowing Relieving factors: nothing Associated symptoms: fever, chills, myalgias, headache, rhinorrhea, nasal congestion, sore throat, cough and nausea Treatments prior to arrival: other (see above ) Related Data Home Medications Medication Instructions Recorded Confirmed clonazepam 1 mg tablet 0.5 mg PO BEDTIME 06/27/20 04/13/22 quetiapine 50 mg tablet 12.5 mg PO BEDTIME 10/10/20 04/13/22 Previous Rx's Medication Instructions Recorded metronidazole 0.75 % (37.5 mg/5 1 appful vaginal BEDTIME 5 days 04/16/22 gram) vaginal gel #70 grams amoxicillin 875 mg-potassium 1 tab PO BID 10 days #20 tabs 05/04/22 clavulanate 125 mg tablet codeine 10 mg-guaifenesin 100 mg/5 5 ml PO Q6H PRN cold symptoms #120 05/04/22 mL oral liquid (Guaifenesin AC) mL cyclobenzaprine 10 mg tablet 10 mg PO Q8H #14 tabs 05/04/22 Allergies Allergy/AdvReac Type Severity Reaction Status Date / Time No Known Allergies Allergy Verified 04/13/22 09:31 Review of Systems Review of Systems: Constitutional : + subjective fevers/chills/fatigue/malaise No Weight loss, No Night Sweats ENT/Mouth : + nasal congestion/rhinorrhea/sinus pressure pain/sore throat, No Hearing loss, No Ear Pain, No Hoarseness, No Swallowing Difficulty Eyes: No Eye Pain, No Swelling, No Redness, No Foreign Body, No Discharge, No Vision Changes Cardiovascular : No Chest Pain, No SOB, No Dyspnea on Exertion, No Orthopnea, No Edema, No Palpitations Respiratory : + Cough, No Sputum, No Wheezing, No Smoke Exposure, No Dyspnea Gastrointestinal : + Nausea, No Vomiting, No Diarrhea, No Constipation, No abdominal Pain, No Hematochezia, No Melena Genitourinary : no irregular bleeding, No Dysuria, No Urinary Frequency, No Hematuria, No Urinary Incontinence, No Urgency, No Flank Pain, No Urinary Flow Changes, No Hesitancy Musculoskeletal : No joint pain, + Myalgias, No Joint Swelling Skin : No Skin Lesions, No rash Neuro : No Weakness, No Numbness, No Paresthesias, No Loss of Consciousness, No Dizziness, No Headache Psych : No Anxiety/Panic, No Depression, No SI/HI/AH/VH, No Social Issues, Heme/Lymph: No Bruising, No Bleeding,No Lymphadenopathy Endocrine : No Polyuria, No Polydipsia, No Temperature Intolerance Yes all other systems are reviewed and are negative [facility] Past Medical History Attestation statement: The following information was validated with the patient. Source: old records reviewed, obtained from family and nursing notes reviewed Medical History Anxiety Depression Surgical History H/O breast augmentation History of abdominal surgery History of endometrial ablation Hx of tubal ligation Family History Family History Father HTN (hypertension) Mother HTN (hypertension) Social History Social History Alcohol intake: never Advance Directives: No service: No Current occupational status: unemployed Gender identity: Female Physical Exam Vital Signs: Vital Signs: Last Vital Signs Temp 98.1 F 05/04/22 10:20 Pulse 99 05/04/22 10:20 Resp 20 05/04/22 10:20 BP 123/88 05/04/22 10:20 Pulse Ox 98 05/04/22 10:20 O2 Del Method 05/04/22 10:20 BMI result Body Mass Index 27.9 vital signs have been reviewed as normal and appeared to be correct. Blood pressure normal. Heart rate normal. Respiration rate normal. Temperature normal. Oxygen saturation normal. Appearance: Alert. Oriented X3. No acute distress. Head: Normal external exam. Normocephalic. Atraumatic. Eyes: PERRLA. EOMI. Conjunctiva and sclera normal. Eyelids normal. ENT: EAC normal. TM's Normal. Patient noted to have sinus pressure pain. Posterior pharynx mildly erythematous although no exudate is noted. Uvula midline. Moist mucous membranes. No lesions/ulcerations or masses noted on the tongue. Normal voice. No trismus noted. No drooling noted. No muffled voice noted. Neck: Normal inspection. Neck supple. FROM. No adenopathy. Thyroid Normal. No tracheal deviation noted. No crepitus is noted. No meningeal signs. No neck mass noted. No signs of trauma noted. CVS: Normal heart rate and rhythm. Heart sound normal. Pulses normal throughout. No murmurs/rales/gallops. Respiratory: No respiratory distress. Painless inspiration. Breath sounds normal. No wheezes/rales/rhonchi noted. Chest nontender. No crepitus is noted. No accessory muscle usage noted or decreased air movement noted. No signs of trauma. Back: Full range of motion noted. Skin: Skin warm and dry. Normal skin color. Normal skin turgor. No rashes/lesions/lacerations noted. Extremities: Extremities exhibit normal range of motion and nontender. Neuro: Oriented X 3. No motor deficit. No sensory deficit.Normal steady gait. No focal neuro deficits noted. Course Course Course Narrative: 46yoF c PMHx of anxiety/depression, status post tonsillectomy presenting to the ER with complaints of subjective fevers, chills, fatigue, malaise, body aches, nausea, nasal congestion/rhinorrhea, sinus pressure pain, intermittent frontal headaches, ear pain, sore throat and a cough for the past 3 days worse today. Reports she has been taking [id number] medication no symptomatic relief. Patient negative for COVID/RSV/flu. Patient with sinus pressure pain. Patient most likely sinusitis. Will send a strep swab. Will treat for sinusitis. No imaging indicated. Will DC home with instructions return if any new or worsening symptoms follow up with primary care provider. Patient understands agrees with this plan. MDM - URI/Sore Throat Medical Records Attestation: I reviewed the patient's medical records. Lab Data Attestation: I reviewed the patient's lab results. Labs: Lab Results 05/04/22 Range/Units 10:30 Influenza Type A (PCR) NEGATIVE (Negative) Influenza Type B (PCR) NEGATIVE (Negative) RSV RNA Qual (PCR) NEGATIVE (Negative) SARS-CoV-2 RNA (RT-PCR) NEGATIVE (Negative) Discharge Plan Discharge Clinical Impression: Sinusitis Patient Disposition: Home, Self-Care Instructions: Sinusitis (ED) Prescriptions: New amoxicillin-pot clavulanate 875-125 mg tablet 1 tab PO BID 10 Days Qty: 20 0RF codeine-guaifenesin [Guaifenesin AC] 10-100 mg/5 mL liquid 5 ml PO Q6H PRN (Reason: cold symptoms) Qty: 120 0RF cyclobenzaprine 10 mg tablet 10 mg PO Q8H Qty: 14 0RF No Action metronidazole 0.75 % (37.5mg/5 gram) gel 1 appful vaginal BEDTIME 5 Days Qty: 70 0RF quetiapine 50 mg Tablet 12.5 mg PO BEDTIME clonazepam 1 mg tablet 0.5 mg PO BEDTIME Referrals: [facility] [Primary Care Provider] - 2 days Print Language: [place]
[2022-05-04] MEDS: dexAMETHasone 2 MG TABLET 10 MG PO (13:05)
[2022-05-04] MEDS: Amoxicillin/Potassium Clav 875 MG TABLET PO (13:05)
[2022-05-04] MEDS: guaiFEN/Codeine SF 200/20/10ML 10 ML LIQUID PO (13:06)
[2022-05-04 13:31] LABS: Strep A Nucleic Acid Negative (Negative)
== END 2022-05-04 13:12 | disposition home or self-care (01) ==
PROVIDERS: Physician Assistant Medical; Emergency Provider Emergency Medicine Emergency Medical Services
DX: J32.9 Chronic sinusitis, unspecified (principal); R51.9 Headache, unspecified; Z20.822 Contact with and (suspected) exposure to COVID-19; Z79.899 Other long term (current) drug therapy
CPT/HCPCS: 0241U; 36415; 87651; 99281; 99283; J8540

== ENCOUNTER 2022-06-23 11:45 | Outpatient (REF) | payer MEDICAID, SELFPAY ==
--- NOTE | ~2022-06-23 | MM_ITS ---
EXAMINATION: MM SCREENING DIGITAL BREAST TOMOSYNTHESIS, BILATERAL CLINICAL INFORMATION: Screening. Asymptomatic. The lifetime risk of breast cancer based on the Tyrer-Cuzick Model is 7%. COMPARISON: Mammography: 04/21/2020, 06/08/2017 TECHNIQUE: Digital mammography is performed in craniocaudal and mediolateral oblique views along with computer-aided detection (CAD). Digital breast tomosynthesis is performed in implant-displaced craniocaudal and implant-displaced mediolateral oblique views along with computer-aided detection (CAD). Synthesized 2D images are generated from the tomosynthesis. FINDINGS: The breasts are heterogeneously dense, which may obscure small masses (ACR BI-RADS breast composition Category c). There are bilateral implants, new from prior exams. The implant contours are smooth. Breast parenchymal pattern is similar to prior studies. There is no significant mass or architectural abnormality or abnormal calcifications. Low right axillary tail nodes stable. The axilla and skin contours are unremarkable. MM/MM tomosynthesis screen imp BI IMPRESSION: No mammographic evidence of malignancy. ASSESSMENT: BI-RADS 2: Benign RECOMMENDATION: Routine annual mammography screening. This patient's information was entered into a reminder system with a target due date for their next mammogram.
== END 2022-06-23 11:46 | disposition home or self-care (01) ==
LOC: HO.MAMMO 11:45
PROVIDERS: PCP Internal Medicine; Visit Provider Internal Medicine
DX: Z12.31 Encounter for screening mammogram for malignant neoplasm of breast (principal)
CPT/HCPCS: 77063; 77067

== ENCOUNTER 2022-09-08 11:06 | Emergency (ER) | payer MEDICAID, SELFPAY ==
[2022-09-08 12:19] VITALS: BP 102/69; PULSE 77; RESP 18; TEMP 36.6; O2SAT 100; BMI 28.8
--- NOTE | 2022-09-08 12:19 | ED_ITS ---
HPI - General Adult General Chief complaint: General Medical Stated complaint: Neck pain Source: patient, RN notes reviewed and search analyst Mode of arrival: ambulatory Limitations: no limitations and language barrier (search analyst used) History of Present Illness HPI narrative: This is a [id number]-female, with a past medical history of anxiety and depression, presenting with complaints of right shoulder/upper back pain since yesterday. Admits to having subjective fevers two nights ago, as well as some nasal congestion. Patient denies any nausea or vomiting. She reports that she has a history of right sided neck/upper back and shoulder pain in the past, used to go to physical therapy for this. Denies any recent trauma or injury. She has been using warm compresses with minimal relief. Related Data Home Medications Medication Instructions Recorded Confirmed clonazepam 1 mg tablet 0.5 mg PO BEDTIME 06/27/20 04/13/22 quetiapine 50 mg tablet 12.5 mg PO BEDTIME 10/10/20 04/13/22 Previous Rx's Medication Instructions Recorded metronidazole 0.75 % (37.5 mg/5 1 appful vaginal BEDTIME 5 days 04/16/22 gram) vaginal gel #70 grams amoxicillin 875 mg-potassium 1 tab PO BID 10 days #20 tabs 05/04/22 clavulanate 125 mg tablet codeine 10 mg-guaifenesin 100 mg/5 5 ml PO Q6H PRN cold symptoms #120 05/04/22 mL oral liquid (Guaifenesin AC) mL cyclobenzaprine 10 mg tablet 10 mg PO Q8H #14 tabs 05/04/22 methocarbamol 500 mg tablet 500 mg PO TID PRN muscle spasm #20 09/08/22 tabs naproxen 500 mg tablet 500 mg PO BID PRN pain #20 tabs 09/08/22 Allergies Allergy/AdvReac Type Severity Reaction Status Date / Time No Known Allergies Allergy Verified 09/08/22 12:18 Review of Systems Constitutional: Constitutional: Reports as per HPI, Denies chills and Denies fatigue Cardiovascular: Cardiovascular: Denies chest pain and Denies dyspnea Respiratory: Respiratory: Denies cough and Denies dyspnea Gastrointestinal: Gastrointestinal: Denies abdominal pain, Denies constipation and Denies vomiting Genitourinary: Genitourinary: Denies dysuria Musculoskeletal: Musculoskeletal: Reports back pain and Reports muscle cramps Endocrine: Endocrine: Denies fatigue PMFSH Past Medical History Medical History Anxiety Depression Surgical History H/O breast augmentation History of abdominal surgery History of endometrial ablation Hx of tubal ligation Family History Family History Father HTN (hypertension) Mother HTN (hypertension) Social History Social History Alcohol intake: never Advance Directives: No Advance Directives Information Provided: Yes service: No Current occupational status: unemployed Gender identity: Female Physical Exam ED Const General: healthy appearing, comfortable, no acute distress, alert and awake Nutritional Appearance: well nourished Orientation/consciousness: patient oriented x3 Eyes Eyelids: Yes eyelids normal Conjunctivae: conjunctivae normal Sclerae: sclerae normal Corneas: corneas normal Pupils: Equal, round and reactive pupils present EOM: EOMs intact bilaterally Resp Effort & Inspection: normal respiratory effort, able to speak in complete sentences, no audible wheezes and not labored Back/Spine/Pelvis Other: Patient has right-sided trapezius muscle group tenderness. She has good range of motion to neck and both upper extremities. No visual or palpable deformity. Cervical Spine: cervical ROM normal and No Cervical spine tenderness Skin General skin exam: no rashes or lesions noted and elasticity normal Lesions: no lesions Rashes: no rashes Neuro General: patient oriented x3 Cranial nerves: Yes Equal, round and reactive pupils present Extrem General: Yes full ROM Medical Decision Making Medical Decision Making MDM Narrative: 46-year-old male presents for evaluation of right sided trapezius muscle group tenderness with history of pain and tenderness in similar area. No bony abnormalities. Clinically the exam supports muscular etiology of her discomfort. We will treat with naproxen and methocarbamol. Differential Diagnosis Muscle strain Spasmodic torticollis Cervical strain Radiculopathy Arthritis Discharge Plan Discharge Clinical Impression: Muscle spasm Patient Disposition: Home, Self-Care Instructions: Muscle Spasm (ED) Additional Instructions: Take prescribed muscle relaxer as directed as needed for your symptoms. Please be aware this may cause drowsiness, do not drink alcohol or operate heavy machinery while taking this medication. You may take over the counter ibuprofen or tylenol as needed for your symptoms. If any new or worsening symptoms occur, please return for re-evaluation. Prescriptions: New naproxen 500 mg tablet 500 mg PO BID PRN (Reason: pain) Qty: 20 0RF methocarbamol 500 mg tablet 500 mg PO TID PRN (Reason: muscle spasm) Qty: 20 0RF No Action metronidazole 0.75 % (37.5mg/5 gram) gel 1 appful vaginal BEDTIME 5 Days Qty: 70 0RF quetiapine 50 mg Tablet 12.5 mg PO BEDTIME amoxicillin-pot clavulanate 875-125 mg tablet 1 tab PO BID 10 Days Qty: 20 0RF codeine-guaifenesin [Guaifenesin AC] 10-100 mg/5 mL liquid 5 ml PO Q6H PRN (Reason: cold symptoms) Qty: 120 0RF cyclobenzaprine 10 mg tablet 10 mg PO Q8H Qty: 14 0RF clonazepam 1 mg tablet 0.5 mg PO BEDTIME
[2022-09-08] MEDS: Ibuprofen 800 MG TABLET PO (12:33)
== END 2022-09-08 12:40 | disposition home or self-care (01) ==
PROVIDERS: Emergency Provider Emergency Medicine
DX: M62.838 Other muscle spasm (principal); M54.2 Cervicalgia; Z79.899 Other long term (current) drug therapy
CPT/HCPCS: 99283

== ENCOUNTER 2022-10-03 13:27 | Emergency (ER) | payer MEDICAID, SELFPAY ==
--- NOTE | ~2022-10-03 | XR_ITS ---
EXAMINATION: XR CHEST CLINICAL INFORMATION: Cough. COMPARISON: Chest x-ray 10/30/2020 TECHNIQUE: Frontal view of the chest was obtained. FINDINGS: The lungs are well-expanded and clear of acute pneumonic process there is mild peribronchial wall thickening likely small airway disease. Heart size and perivascular is normal. No gross bony abnormality seen. XR/XR chest 1V IMPRESSION: Mild peribronchial wall thickening likely small airway disease. No acute consolidation seen.
--- NOTE | 2022-10-03 13:33 | ECG_ITS ---
Test Reason : CX PAIN Blood Pressure : / mmHG Vent. Rate : 089 BPM Atrial Rate : 089 BPM P-R Int : 132 ms QRS Dur : 068 ms QT Int : 340 ms P-R-T Axes : 062 020 041 degrees QTc Int : 413 ms Normal sinus rhythm Normal ECG When compared with ECG of 30-OCT-2020 00:02, No significant change was found Referred By: Generic ED Physician Electronically Signed By:GUILLERMO STALLWORTH
[2022-10-03 14:18] VITALS: BP 130/85; PULSE 88; RESP 17; TEMP 36.6; O2SAT 98; BMI 27.4
--- NOTE | 2022-10-03 14:23 | ED.GENADULT ---
HPI - General Adult General Chief complaint: Upper Respiratory Symptoms <MO Menjivar - Last Filed: 10/04/22 11:53> Stated complaint: Headache/Nausea/Chest pain <MO Menjivar - Last Filed: 10/04/22 11:53> Time Seen by Provider: 10/03/22 17:29 <MO Menjivar - Last Filed: 10/04/22 11:53> Source: patient and family <MO Reyes - Last Filed: 10/03/22 17:51> Mode of arrival: ambulatory <MO Reyes - Last Filed: 10/03/22 17:51> Limitations: language barrier (Angolan-speaking) <MO Reyes Last Filed: 10/03/22 17:51> History of Present Illness HPI narrative: 46yoF with a PMHx of anxiety and depression who is presenting to the ER with complaints of body aches, chills, fatigue, malaise, generalized weakness, sore throat, cough for the past few days worse today. Denies recent travel or sick contacts. Denies any measured fevers, dizziness, neck pain/stiffness, trouble swallowing or breathing, chest pain or shortness of breath, dyspnea on exertion, orthopnea, palpitations, paresthesias, nausea/vomiting/diarrhea, lower extremity edema or calf tenderness, abdominal pain or any other symptoms complaints or concerns at this time. <MO Reyes - Last Filed: 10/03/22 17:51> MD complaint: URI symptoms <MO Reyes Last Filed: 10/03/22 17:51> Onset (ago): day(s) (For the past few days worse today) <MO Reyes - Last Filed: 10/03/22 17:51> Related Data Home medications: Home Medications Medication Instructions Recorded Confirmed clonazepam 1 mg tablet 0.5 mg PO BEDTIME 06/27/20 04/13/22 quetiapine 50 mg tablet 12.5 mg PO BEDTIME 10/10/20 04/13/22 Previous Rx's Medication Instructions Recorded metronidazole 0.75 % (37.5 mg/5 1 appful vaginal BEDTIME 5 days 04/16/22 gram) vaginal gel #70 grams amoxicillin 875 mg-potassium 1 tab PO BID 10 days #20 tabs 05/04/22 clavulanate 125 mg tablet codeine 10 mg-guaifenesin 100 mg/5 5 ml PO Q6H PRN cold symptoms #120 05/04/22 mL oral liquid (Guaifenesin AC) mL cyclobenzaprine 10 mg tablet 10 mg PO Q8H #14 tabs 05/04/22 methocarbamol 500 mg tablet 500 mg PO TID PRN muscle spasm #20 09/08/22 tabs naproxen 500 mg tablet 500 mg PO BID PRN pain #20 tabs 09/08/22 cefuroxime axetil 500 mg tablet 500 mg PO BID 7 days #14 tabs 10/03/22 codeine 10 mg-guaifenesin 100 mg/5 5 ml PO Q6H PRN cold symptoms #120 10/03/22 mL oral liquid (Guaifenesin AC) mL cyclobenzaprine 10 mg tablet 10 mg PO Q8H #14 tabs 10/03/22 prednisone 20 mg tablet 40 mg PO DAILY inflammation 5 days 10/03/22 #10 tabs <MO Menjivar - Last Filed: 10/04/22 11:53> Allergies/adverse reactions: Allergies Allergy/AdvReac Type Severity Reaction Status Date / Time No Known Allergies Allergy Verified 10/03/22 14:17 <MO Menjivar - Last Filed: 10/04/22 11:53> Review of Systems Review of Systems: Constitutional : + chills/fatigue/malaise, No Weight loss, No Fever, No Night Sweats ENT/Mouth : + sore throat/nasal congestion/rhinorrhea, No Hearing loss, No Ear Pain, No Sinus Pain, No Hoarseness, No Swallowing Difficulty Eyes: No Eye Pain, No Swelling, No Redness, No Foreign Body, No Discharge, No Vision Changes Cardiovascular : No Chest Pain, No SOB, No Dyspnea on Exertion, No Orthopnea, No Edema, No Palpitations Respiratory : + Cough, No Sputum, + Wheezing, No Smoke Exposure, + Dyspnea Gastrointestinal : No Nausea, No Vomiting, No Diarrhea, No Constipation, No abdominal Pain, No Hematochezia, No Melena Genitourinary : no irregular bleeding, No Dysuria, No Urinary Frequency, No Hematuria, No Urinary Incontinence, No Urgency, No Flank Pain, No Urinary Flow Changes, No Hesitancy Musculoskeletal : No joint pain, + Myalgias, No Joint Swelling Skin : No Skin Lesions, No rash Neuro : +General weakness, No Focal Weakness, No Numbness, No Paresthesias, No Loss of Consciousness, No Dizziness, No Headache Psych : No Anxiety/Panic, No Depression, No SI/HI/AH/VH, No Social Issues, Heme/Lymph: No Bruising, No Bleeding,No Lymphadenopathy Endocrine : No Polyuria, No Polydipsia, No Temperature Intolerance <MO Reyes - Last Filed: 10/03/22 17:51> Yes all other systems are reviewed and are negative <MO Reyes - Last Filed: 10/03/22 17:51> PMF Past Medical History Medical History: Medical History Anxiety Depression <MO Menjivar - Last Filed: 10/04/22 11:53> Surgical History: Surgical History H/O breast augmentation History of abdominal surgery History of endometrial ablation Hx of tubal ligation <MO Menjivar - Last Filed: 10/04/22 11:53> Family History Family History: Family History Father HTN (hypertension) Mother HTN (hypertension) <MO Menjivar - Last Filed: 10/04/22 11:53> Social History Social History: Social History Alcohol intake: never Advance Directives: No Advance Directives Information Provided: Yes service: No Current occupational status: unemployed Gender identity: Female <MO Menjivar - Last Filed: 10/04/22 11:53> Physical Exam ED Vital Signs: Vital Signs - 24 hr 10/03/22 14:18 10/03/22 16:09 Temperature 98 F 98.4 F Pulse Rate 88 74 Respiratory Rate 17 16 Blood Pressure 130/85 130/82 Pulse Oximetry 98 98 Oxygen Delivery Method Room Air Room Air BMI result Body Mass Index 27.4 <MO Menjivar - Last Filed: 10/04/22 11:53> Vital Signs - 24 hr 10/03/22 14:18 10/03/22 16:09 Temperature 98 F 98.4 F Pulse Rate 88 74 Respiratory Rate 17 16 Blood Pressure 130/85 130/82 Pulse Oximetry 98 98 Oxygen Delivery Method Room Air Room Air BMI result Body Mass Index 27.4 vital signs have been reviewed as normal and appeared to be correct. Blood pressure normal. Heart rate normal. Respiration rate normal. Temperature normal. Oxygen saturation normal. <MO Reyes - Last Filed: 10/03/22 17:51> Appearance: Alert. Oriented X3. No acute distress. Head: Normal external exam. Normocephalic. Atraumatic. Eyes: PERRLA. EOMI. Conjunctiva and sclera normal. Eyelids normal. ENT: EAC normal. TM's Normal. Pharynx normal. Uvula midline. Moist mucous membranes. No lesions/ulcerations or masses noted on the tongue. Normal voice. No trismus noted. No drooling noted. No muffled voice noted. Neck: Normal inspection. Neck supple. FROM. No adenopathy. Thyroid Normal. No tracheal deviation noted. No crepitus is noted. No meningeal signs. No neck mass noted. No signs of trauma noted. CVS: Normal heart rate and rhythm. Heart sound normal. Pulses normal throughout. No murmurs/rales/gallops. Respiratory: No respiratory distress. Painless inspiration. Breath sounds normal. No wheezes/rales/rhonchi noted. Chest nontender. No crepitus is noted. No signs of trauma noted. No accessory muscle usage noted or decreased air movement noted. No signs of trauma. Abdomen: Soft and nontender. Bowel sounds normal in all 4 quadrants. No distention noted. No organomegaly noted. No visible injury noted. Back: No CVA tenderness. Full range of motion noted. Nontender. No signs of trauma. Patient neuro intact bilaterally and distally on all 4 extremities. Patient's reflexes intact bilaterally and distally on all 4 extremities. No rashes/lesion/induration/fluctuance or signs of infection noted. Skin: Skin warm and dry. Normal skin color. Normal skin turgor. No rashes/lesions/lacerations noted. Extremities: No lower extremity edema. No calf tenderness is noted. Extremities exhibit normal range of motion and nontender. Neuro: Oriented X 3. No motor deficit. No sensory deficit. Reflexes normal. Normal steady gait. No focal neuro deficits noted. CN's II-XII intact bilaterally? Vascular: + radial pulses/+ 2 distal pedal pulses/+2 dorsalis pedis b/l. Normal cap refill. No cyanosis noted to upper extremity nails and lower extremity toes nails. <MO Reyes - Last Filed: 10/03/22 17:51> Course Course Course Narrative: RME: presens to the ED for cough, bodyaches, weaktness, and sore throat. no leg swelling or calf pain. SARS/Covid/Strep ordered. CHest xray ordered <MO Menjivar - Last Filed: 10/04/22 11:53> Reevaluation(s) Reevaluation #1: This patient presents with acute cough, most consistent with bronchitis with bronchospasm. Presentation not consistent with acute bacterial pneumonia, influenza, asthma, transient airway hyperresponsiveness. Presentation not consistent with chronic causes of cough (including GERD, asthma, postnasal discharge, medication side effect, CHF, lung cancer or mass). Chest x-ray was obtained and negative for any acute processes. COVID/RSV/flu and strep negative. Patient most likely bronchitis. Will DC home with albuterol inhaler, prednisone, cough medicine and antibiotics instructions return if any new or worsening symptoms follow up with primary care provider. Patient with spouse at bedside understand agree this plan. <MO Reyes - Last Filed: 10/03/22 17:51> Time: 17:47 <MO Reyes - Last Filed: 10/03/22 17:51> Medications Administered Discontinued Medications Generic Name Dose Route Start Last Admin Trade Name Juanjoseq PRN Reason Stop Dose Admin Albuterol Sulfate 2 puff 10/03/22 17:36 10/03/22 17:40 Albuterol Sulfate 90 Mcg 8 Gm Inhaler INHALE 10/03/22 17:37 2 puff ONCE ONE Administration Cyclobenzaprine HCl 10 mg 10/03/22 17:45 10/03/22 17:58 Cyclobenzaprine Hcl 10 Mg Tablet PO 10/03/22 17:46 10 mg ONCE ONE Administration Guaifenesin/Codeine Phosphate 10 ml 10/03/22 17:45 10/03/22 17:58 Guaifen/Codeine Sf 200/20/10ml 10 Ml Liquid PO 10/03/22 17:46 10 ml ONCE ONE Administration <MO Menjivar Last Filed: 10/04/22 11:53> Medications Administered Discontinued Medications Generic Name Dose Route Start Last Admin Trade Name Juanjoseq PRN Reason Stop Dose Admin Albuterol Sulfate 2 puff 10/03/22 17:36 10/03/22 17:40 Albuterol Sulfate 90 Mcg 8 Gm Inhaler INHALE 10/03/22 17:37 2 puff ONCE ONE Administration Cyclobenzaprine HCl 10 mg 10/03/22 17:45 10/03/22 17:58 Cyclobenzaprine Hcl 10 Mg Tablet PO 10/03/22 17:46 10 mg ONCE ONE Administration Guaifenesin/Codeine Phosphate 10 ml 10/03/22 17:45 10/03/22 17:58 Guaifen/Codeine Sf 200/20/10ml 10 Ml Liquid PO 10/03/22 17:46 10 ml ONCE ONE Administration <MO Reyes - Last Filed: 10/03/22 17:51> Medical Decision Making Lab Data MDM Lab Attestation statement: I reviewed the patient's lab results. <MO Reyes - Last Filed: 10/03/22 17:51> Labs: Lab Results 10/03/22 10/03/22 Range/Units 14:24 14:25 Influenza Type A (PCR) NEGATIVE (Negative) Influenza Type B (PCR) NEGATIVE (Negative) RSV RNA Qual (PCR) NEGATIVE (Negative) SARS-CoV-2 RNA (RT-PCR) NEGATIVE (Negative) S. pyogenes GrpA SRI Negative (Negative) <MO Menjivar - Last Filed: 10/04/22 11:53> Lab Results 10/03/22 10/03/22 Range/Units 14:24 14:25 Influenza Type A (PCR) NEGATIVE (Negative) Influenza Type B (PCR) NEGATIVE (Negative) RSV RNA Qual (PCR) NEGATIVE (Negative) SARS-CoV-2 RNA (RT-PCR) NEGATIVE (Negative) S. pyogenes GrpA SRI Negative (Negative) <MO Reyes Last Filed: 10/03/22 17:51> Independent Interpretation I performed an independent interpretation of an: EKG (EKG normal sinus rhythm ventricular rate of 89 with a normal WV interval normal QRS duration normal QT/QTC interval. No acute ischemic change are noted.) and Plain X-Ray (Chest x-ray reviewed by myself agreeable with radiologist report) <MO Reyes - Last Filed: 10/03/22 17:51> Radiology Impression Discussion of test interpretation with radiology: I have reviewed the radiologist's reading. <MO Reyes - Last Filed: 10/03/22 17:51> Radiologist Impression: FINDINGS: The lungs are well-expanded and clear of acute pneumonic process there is mild peribronchial wall thickening likely small airway disease. Heart size and perivascular is normal. No gross bony abnormality seen. XR/XR chest 1V IMPRESSION: Mild peribronchial wall thickening likely small airway disease. No acute consolidation seen. <MO Reyes - Last Filed: 10/03/22 17:51> Independent Historian Clinical information obtained from an independent historian. History obtained from or confirmed by: Spouse <MO Reyes Last Filed: 10/03/22 17:51> Prescription Management I considered prescription management with: Pain Medication and Antibiotic <OM Reyes Last Filed: 10/03/22 17:51> Robitussin with codeine and antibiotics for bronchitis with bronchospasm <MO Reyes Last Filed: 10/03/22 17:51> Discharge Plan Discharge Clinical Impression: Acute bronchitis with bronchospasm <MO Menjivar Last Filed: 10/04/22 11:53> Patient Disposition: Home, Self-Care <MO Menjivar Last Filed: 10/04/22 11:53> Instructions: Acute Bronchitis (ED), Wheezing (ED) <MO Menjivar Last Filed: 10/04/22 11:53> Prescriptions: New cyclobenzaprine 10 mg tablet 10 mg PO Q8H Qty: 14 0RF prednisone 20 mg tablet 40 mg PO DAILY 5 Days Qty: 10 0RF codeine-guaifenesin [Guaifenesin AC] 10-100 mg/5 mL liquid 5 ml PO Q6H PRN (Reason: cold symptoms) Qty: 120 0RF cefuroxime axetil 500 mg tablet 500 mg PO BID 7 Days Qty: 14 0RF No Action metronidazole 0.75 % (37.5mg/5 gram) gel 1 appful vaginal BEDTIME 5 Days Qty: 70 0RF quetiapine 50 mg Tablet 12.5 mg PO BEDTIME amoxicillin-pot clavulanate 875-125 mg tablet 1 tab PO BID 10 Days Qty: 20 0RF codeine-guaifenesin [Guaifenesin AC] 10-100 mg/5 mL liquid 5 ml PO Q6H PRN (Reason: cold symptoms) Qty: 120 0RF cyclobenzaprine 10 mg tablet 10 mg PO Q8H Qty: 14 0RF naproxen 500 mg tablet 500 mg PO BID PRN (Reason: pain) Qty: 20 0RF methocarbamol 500 mg tablet 500 mg PO TID PRN (Reason: muscle spasm) Qty: 20 0RF clonazepam 1 mg tablet 0.5 mg PO BEDTIME <MO Menjivar - Last Filed: 10/04/22 11:53> Referrals: [facility] [Primary Care Provider] - 2 days <MO Menjivar - Last Filed: 10/04/22 11:53> Stand Alone Forms: Work/School Release <MO Menjivar - Last Filed: 10/04/22 11:53> Interventions: ED Discharge Assessment Last Done: 10/03/22 18:34 <MO Menjivar - Last Filed: 10/04/22 11:53> Discharge Date/Time: 10/03/22 18:34 <MO Menjivar - Last Filed: 10/04/22 11:53>
[2022-10-03 14:44] LABS: IDNOW Serial# 08D9AD1C; Strep A Nucleic Acid Negative (Negative)
[2022-10-03 15:46] LABS: Influenza A PCR NEGATIVE (Negative); Influenza B PCR NEGATIVE (Negative); Resp Syncy Virus RNA Qual PCR NEGATIVE (Negative); SARS COV2 PCR INHOUSE NEGATIVE (Negative)
[2022-10-03 16:09] VITALS: BP 130/82; PULSE 74; RESP 16; TEMP 36.9; O2SAT 98
[2022-10-03] MEDS: Albuterol Sulfate 90 MCG 8 GM INHALER 2 PUFF INHALE (17:40)
[2022-10-03] MEDS: Cyclobenzaprine HCl 10 MG TABLET PO (17:58)
[2022-10-03] MEDS: guaiFEN/Codeine SF 200/20/10ML 10 ML LIQUID PO (17:58)
== END 2022-10-03 18:34 | disposition home or self-care (01) ==
PROVIDERS: Physician Assistant; Emergency Provider Internal Medicine
DX: J20.8 Acute bronchitis due to other specified organisms (principal); R07.89 Other chest pain; M79.10 Myalgia, unspecified site; R05.9 Cough, unspecified; R50.9 Fever, unspecified; Z20.822 Contact with and (suspected) exposure to COVID-19; Z20.828 Contact with and (suspected) exposure to other viral communicable diseases; Z79.899 Other long term (current) drug therapy
CPT/HCPCS: 0241U; 71045; 87651; 93005; 99284

== ENCOUNTER 2023-01-06 11:28 | Outpatient (REF) | payer MEDICAID, SELFPAY ==
[2023-01-07 02:51] LABS: CT PCR NOT DETECTED (Not Detect.); NG PCR NOT DETECTED (Not Detect.)
[2023-01-07 11:13] LABS: BV Int Neg Control Negative (Negative); BV Int Pos Control Positive (Positive)
== END 2023-01-06 11:29 | disposition home or self-care (01) ==
LOC: HO.LNP 11:28
PROVIDERS: Visit Provider Advanced Practice Midwife
DX: Z20.2 Contact with and (suspected) exposure to infections with a predominantly sexual mode of transmission (principal); N89.8 Other specified noninflammatory disorders of vagina; N94.9 Unspecified condition associated with female genital organs and menstrual cycle; Z87.440 Personal history of urinary (tract) infections
CPT/HCPCS: 0353U; 87480; 87510; 87660; 99212

== ENCOUNTER 2023-01-07 10:09 | Emergency (ER) | payer MEDICAID, SELFPAY ==
[2023-01-07 10:13] VITALS: BP 121/80; PULSE 90; RESP 19; TEMP 36.6; O2SAT 99
--- NOTE | 2023-01-07 10:25 | ED_ITS ---
HPI - Female Genitourinary General Chief complaint: Urogenital-Female Stated complaint: Urinary Infection Time Seen by Provider: 01/07/23 10:25 Source: patient and functional consultant Mode of arrival: ambulatory Limitations: language barrier History of Present Illness HPI Narrative: Patient is a 47 year old assigned female at with a history of anxiety, depression, and recent UTI presenting to the emergency department today with continued pain with urination and low back pain. Patient states that earlier this month she was seen in [place] for pain with urination and given 5 days of antibiotics. Patient states that it got better for a little bit but now it is back and her low back hurts. Patient denies any dizziness, lightheadedness, abdominal pain, nausea, vomiting, fever, chills, blurry vision, double vision, loss of vision, chest pain, difficulty breathing, shortness of breath, night sweats, increased urinary frequency, increased urinary urgency, blood in her urine or stool, syncope or a near syncopal episode, recent trauma or falls, bowel incontinence, bladder incontinence, bowel retention, bladder retention, or any other complaints at this time. MD elicited complaint: dysuria, UTI and back pain Onset (ago): day(s) Severity: mild Severity scale (1-10): 3 Quality of pain: aching Consistency: constant Vaginal discharge: none Vaginal bleeding: none Urinary symptoms: Dysuria Relieving factors: none Associated symptoms: back pain Treatment prior to arrival: none Related Data Home Medications Medication Instructions Recorded Confirmed clonazepam 1 mg tablet 0.5 mg PO BEDTIME 06/27/20 01/06/23 Previous Rx's Medication Instructions Recorded cefdinir 300 mg capsule 300 mg PO BID 7 days #14 caps 01/07/23 naproxen 500 mg tablet 500 mg PO BID 7 days #14 tabs 01/07/23 phenazopyridine 200 mg tablet 200 mg PO TID 3 days #9 tabs 01/07/23 (Pyridium) Allergies Allergy/AdvReac Type Severity Reaction Status Date / Time No Known Allergies Allergy Verified 01/06/23 11:57 Review of Systems Constitutional: Constitutional: Reports no additional constitutional complai nts, Denies chills, Denies fever(s) and Denies night sweats Eyes: Eyes: Reports no additional eye complaints, Denies blurry vision, Denies change in vision, Denies diplopia, Denies eye discharge, Denies loss of vision and Denies eye pain ENT: Denies dizziness Cardiovascular: Cardiovascular: Reports no additional cardiovascular complaints, Denies chest pain, Denies lightheadedness, Denies Loss of Consciousness and Denies dyspnea Respiratory: Respiratory: Reports no additional respiratory complaints and Denies dyspnea Gastrointestinal: Gastrointestinal: Reports no additional gastrointestinal complaints, Denies abdominal pain, Denies melena, Denies hematochezia, Denies change in bowel habits and Denies change in stool character Genitourinary: Genitourinary: Denies hematuria, Denies urinary frequency, Reports dysuria, Denies urinary incontinence, Denies urinary hesitancy and Denies urinary urgency Musculoskeletal: Musculoskeletal: Reports no additional musculoskeletal complaints, Reports back pain, Denies numbness and Denies tingling Neurologic: Denies dizziness, Denies loss of vision, Denies numbness and Denies tingling Psychiatric: Psychiatric: Reports no additional psychiatric complaints Endocrine: Endocrine: Reports no additional endocrine complaints Hematologic/Lymphatic: Hematologic/Lymphatic: Reports no additional hematologic/lymphatic complaints Allergic/Immunologic: Allergic/Immunologic: Reports no additional allergic/immunologic complaints [facility] Past Medical History Attestation statement: The following information was validated with the patient. Source: old records reviewed and nursing notes reviewed Medical History Anxiety Depression Surgical History H/O breast augmentation History of abdominal surgery History of endometrial ablation Hx of tubal ligation Family History Family History Father HTN (hypertension) Mother HTN (hypertension) Social History Social History Alcohol intake: never Smoked in Last 30 Days: No Use of substances other than those prescribed or required for medical reasons: No Advance Directives: No Advance Directives Information Provided: No Patient : No service: No Current occupational status: unemployed Gender identity: Female Physical Exam Vital Signs: Vital Signs: Last Vital Signs Temp 97.8 F 01/07/23 10:13 Pulse 90 01/07/23 10:13 Resp 19 01/07/23 10:13 BP 121/80 01/07/23 10:13 Pulse Ox 99 01/07/23 10:13 O2 Del Method Room Air 01/07/23 10:13 BMI result Body Mass Index 30.0 Const: General: cooperative, no acute distress, alert and awake Nutritional Appearance: well nourished Orientation/consciousness: patient oriented x3 Limitations: no limitations HEENT: Head: Yes normal to inspection and Yes atraumatic Ears: hearing grossly normal bilaterally and external ears normal General nose exam: Normal external nose present, no nasal discharge noted and no epistaxis Face and sinus: Yes normal facial exam, No abrasion and No laceration Mouth: Normal oral and palatal mucosa present, no drooling and no muffled voice Eyes: General: appearance normal, both eyes and all related structures Periorbital: periorbital findings normal Eyelids: Yes eyelids normal Conjunctivae: conjunctivae normal Pupils: Equal, round and reactive pupils present EOM: EOMs intact bilaterally Neck: Neck: Yes normal visual inspection, Yes full ROM and Yes no lymphadenopathy Chest: Chest palpation & inspection: normal inspection of the chest Resp: Effort & Inspection: normal respiratory effort and able to speak in complete sentences Auscultation: clear to auscultation bilaterally Cardio: Rate: regular rate Rhythm: regular rhythm GI: Inspection: Yes normal to inspection Palpation (GI): Soft to palpation, not firm, nontender and no guarding : General: Yes no CVA tenderness Back/Spine/Pelvis: Back: no CVA tenderness Neuro: General: patient oriented x3 and moves all extremities Cranial nerves: Yes Equal, round and reactive pupils present Cognition (Neuro): normal cognition Motor exam (neuro): 5/5 motor strength present throughout Sensory Exam: Normal double simultaneous stimulation for sensation Coordination: [id number] test normal Extrem: General: Yes normal to inspection, Yes full ROM and Yes capillary refill normal Psych: Appearance: grossly normal Mental Status: mental status grossly normal Affect: normal affect Attitude: cooperative Thought process: Normal thought process present Thought content: Normal thought content present Insight: Good insight present (Psych) Medications Administered Discontinued Medications Generic Name Dose Route Start Last Admin Trade Name Freq PRN Reason Stop Dose Admin Ketorolac Tromethamine 15 mg 01/07/23 11:01 01/07/23 11:22 Ketorolac Tromethamine 15 Mg/Ml Vial IM 01/07/23 11:02 15 mg ONCE ONE Administration Medical Decision Making Medical Decision Making MDM Narrative: Patient is a 47 year old assigned female at with a history of anxiety, depression, and recent UTI presenting to the emergency department today with low back pain and pain with urination. Patient's physical exam was unremarkable. Patient's urine showed a possible urinary tract infection, given the patient's symptoms, will treat for pyelonpehritis. I explained my physical exam findings as well as all test results to the patient. I answered all questions asked by the patient. I stressed the importance of the patient taking her medication as prescribed. I stressed the importance of the patient following up with her primary care provider. I stressed the importance of the patient returning to the emergency department immediately if her symptoms were to worsen or if she were to develop any dizziness, shortness of breath, difficulty breathing, chest pain, blurry vision, loss of vision, nausea, vomiting, abdominal pain, fever, chills, back pain, or any other complaints. Patient verbalized agreement and understanding with this treatment plan and discharge. Differential Diagnosis Differential Diagnoses: The differential diagnosis associated with the presentation includes pyelonephritis UTI Admission/Observation Consideration of admission/observation: Escalation of care including admission/observation considered Patient would have been admitted to the hospital had her work up had any findings where hospital admission was appropriate and her clinical presentation warranted hospital admission. Lab Data [facility] Lab Attestation statement: I reviewed the patient's lab results. Patient's urine shows evidence of a possible UTI. Labs: Lab Results 01/07/23 Range/Units 10:36 Urine Color Yellow Urine Appearance Turbid Urine pH 5.5 (5.0-9.0) Ur Specific [place] 1.025 (1.005-1.025) Urine Protein 30 (1+) H (Neg-Trace) mg/dL Urine Glucose (UA) Negative (Negative) mg/dL Urine Ketones Trace (Negative) mg/dL Urine Blood Large (3+) H (Negative) Urine Nitrite Negative (Negative) Ur Leukocyte Esterase Large (3+) H (Negative) Urine RBC >20 H (0-2) /HPF Urine WBC >50 H (0-5) /HPF Ur Squamous Epith Cells 0-2 (0-2) /HPF Urine Bacteria None Seen (None Seen) Hyaline Casts 3-5 (0-2) /LPF Prescription Management I considered prescription management with: Pain Medication (Prescribed.) and Antibiotic (Prescribed.) Chronic Conditions Patient?s care impacted by: Other (anxiety, depression) Discharge Plan Discharge Clinical Impression: Pyelonephritis Patient Disposition: Home, Self-Care Instructions: Kidney Infection (ED) Additional Instructions: Follow up with your primary care provider. Return to the emergency department immediately if your symptoms worsen or if you develop any dizziness, shortness of breath, difficulty breathing, chest pain, blurry vision, loss of vision, nausea, vomiting, abdominal pain, fever, chills, back pain, or any other complaints. Hector un seguimiento con calixto proveedor de atenci?n primaria. Regrese al departamento de emergencias de inmediato si ronak s?ntomas empeoran o si presenta mareos, falta de aire, dificultad para respirar, dolor de pecho, visi?n borrosa, p?rdida de la visi?n, n?useas, v?mitos, dolor abdominal, fiebre, escalofr?os, dolor de espalda o cualquier otras quejas. Prescriptions: New cefdinir 300 mg capsule 300 mg PO BID 7 Days Qty: 14 0RF naproxen 500 mg tablet 500 mg PO BID 7 Days Qty: 14 0RF phenazopyridine [Pyridium] 200 mg tablet 200 mg PO TID 3 Days Qty: 9 0RF No Action clonazepam 1 mg tablet 0.5 mg PO BEDTIME Referrals: [facility] [Primary Care Provider] - Stand Alone Forms: Work/School Release Interventions: ED Discharge Assessment Last Done: 01/07/23 11:23 Discharge Date/Time: 01/07/23 11:24 Print Language: Swedish
[2023-01-07 10:44] LABS: Appearance Urine Turbid; Color Urine Yellow; Glucose Urine UA Negative (Negative); Leukocyte Esterase Urine Large (3+) (Negative); Nitrite Urine Negative (Negative); PH 5.5 (5.0-9.0); Specific Gravity - Urine 1.025 (1.005-1.025); UMIC TRIGGER UACC YES; Urine Blood Large (3+) (Negative); Urine Ketones Trace mg/dL (Negative); Urine Protein 30 (1+) mg/dL (Neg-Trace)
[2023-01-07 10:49] LABS: Bacteria Urine None Seen (None Seen); RBC Urine >20 /HPF (0-2); Squamous Epithelial Cell Urine 0-2 /HPF (0-2); UACC Culture Trigger YES; WBC Urine >50 /HPF (0-5)
[2023-01-07] MEDS: Ketorolac Tromethamine 15 MG/ML VIAL IM (11:22)
== END 2023-01-07 11:24 | disposition home or self-care (01) ==
PROVIDERS: Physician Assistant Medical; Emergency Provider Emergency Medicine Emergency Medical Services
DX: N12 Tubulo-interstitial nephritis, not specified as acute or chronic (principal)
CPT/HCPCS: 81001; 87086; 96372; 99284; J1885

== ENCOUNTER 2023-06-09 16:18 | Emergency (ER) | payer MEDICAID, SELFPAY ==
--- NOTE | ~2023-06-09 | XR_ITS ---
EXAMINATION: XR CHEST CLINICAL INFORMATION: Productive cough. COMPARISON: Chest radiograph 10/03/2022. TECHNIQUE: 2 views of the chest were obtained. FINDINGS: Stable appearance of the cardiomediastinal silhouette. Lungs are adequately expanded without focal airspace opacities, pleural effusion or pneumothorax. No evidence of overt pulmonary edema. No acute osseous findings. Visualized upper abdomen is within normal limits. XR/XR chest 2V IMPRESSION: No acute cardiopulmonary findings.
--- NOTE | 2023-06-09 16:25 | ECG_ITS ---
Test Reason : CHEST PAIN Blood Pressure : / mmHG Vent. Rate : 080 BPM Atrial Rate : 080 BPM P-R Int : 132 ms QRS Dur : 070 ms QT Int : 370 ms P-R-T Axes : 059 019 030 degrees QTc Int : 426 ms Normal sinus rhythm Normal ECG When compared with ECG of 03-OCT-2022 13:34, No significant change was found Referred By: Johanne Benson Electronically Signed By:GENESIS ROYAL MD
[2023-06-09 16:48] LABS: MANUAL DIFF FLAG NO
[2023-06-09 16:49] VITALS: BP 109/56; PULSE 78; RESP 15; TEMP 36.4; O2SAT 98; BMI 32.8
--- NOTE | 2023-06-09 16:52 | ED_ITS ---
HPI - General Adult General Chief complaint: Asthma Stated complaint: chest pain, wheezing, bronchitis Time Seen by Provider: 06/09/23 22:24 Source: patient, RN notes reviewed and old records reviewed Mode of arrival: ambulatory Limitations: no limitations History of Present Illness HPI narrative: 47-year-old female presents for evaluation of wheezing, shortness of breath Patient reports that about 1 week ago she had ?a cold. ? She states that her symptoms improved, her cough resolved Over the last 2 days she states that she could hear ?wheezing. ? She has some mild chest discomfort as well Denies any further fevers or chills Related Data Home Medications Medication Instructions Recorded Confirmed clonazepam 1 mg tablet 0.5 mg PO BEDTIME 06/27/20 01/06/23 Previous Rx's Medication Instructions Recorded cefdinir 300 mg capsule 300 mg PO BID 7 days #14 caps 01/07/23 naproxen 500 mg tablet 500 mg PO BID 7 days #14 tabs 01/07/23 phenazopyridine 200 mg tablet 200 mg PO TID 3 days #9 tabs 01/07/23 (Pyridium) metronidazole 0.75 % (37.5 mg/5 1 appful vaginal BEDTIME 5 days 01/14/23 gram) vaginal gel #70 grams albuterol sulfate 90 mcg/actuation 2 puff inhalation Q4-6H PRN 06/09/23 aerosol inhaler shortness of breath or wheezing #6.7 grams azithromycin 250 mg tablet See Rx Instructions PO .COMPLEX #6 06/09/23 tabs prednisone 20 mg tablet 40 mg (2 x 20 mg) PO DAILY #10 tabs 06/09/23 Allergies Allergy/AdvReac Type Severity Reaction Status Date / Time No Known Allergies Allergy Verified 01/06/23 11:57 Review of Systems 2 Constitutional: Constitutional: Denies chills and Denies fever(s) ENT: Denies sore throat Cardiovascular: Cardiovascular: Reports chest pain, Denies chest pain at rest and Reports dyspnea Respiratory: Respiratory: Denies cough, Denies pain with cough, Reports dyspnea and Reports wheezing Gastrointestinal: Gastrointestinal: Denies abdominal pain, Denies nausea and Denies vomiting Musculoskeletal: Musculoskeletal: Denies back pain Allergic/Immunologic: Allergic/Immunologic: Reports wheezing PMFSH Past Medical History Medical History Anxiety Depression Surgical History H/O breast augmentation History of abdominal surgery History of endometrial ablation Hx of tubal ligation Family History Family History Father HTN (hypertension) Mother HTN (hypertension) Social History Social History Alcohol intake: never Advance Directives: No Advance Directives Information Provided: No service: No Current occupational status: unemployed Gender identity: Female Physical Exam ED Vital Signs: Vital Signs - 24 hr 06/09/23 16:49 Temperature 97.5 F Pulse Rate 78 Respiratory Rate 15 Blood Pressure 109/56 L Pulse Oximetry 98 Oxygen Delivery Method Room Air BMI result Body Mass Index 32.8 Course Course Course Narrative: This is a rapid medical exam: Additional HPI, ROS, PE not included below will be deferred to primary provider. Patient is a 47-year-old [place] speaking female presenting to the emergency department with complaint of cold symptoms for the past week, has progressed to productive cough and wheezing for the past 5 days. She denies chest pain. Denies fevers. Reports history of bronchiolitis. States sputum is thick and yellow. Plan: swab for flu/covid, CXR Medical Decision Making Medical Decision Making MDM Narrative: [age] old female presents for evaluation of cough, wheezing, shortness of breath. She reports that she had a cold 1 week ago and now her cough has improved but she has wheezing. She states that she does have an inhaler that she ran out of a few days ago. History exam is most consistent with asthma, on exam she is quite stable. There is some wheezing exam. Will treat with albuterol prednisone, azithromycin she is stable for discharge. Her workup shows no acute significant findings Differential Diagnosis Differential Diagnoses: The differential diagnosis associated with the presentation includes Upper respiratory infection Pneumonia Bronchitis Viral syndrome Influenza Lab Data MDM Lab Attestation statement: I reviewed the patient's lab results. No leukocytosis or anemia. Normal platelet count. No significant electrolyte abnormalities urine 06/09/23 16:44 06/09/23 16:44 Labs: Lab Results 06/09/23 Range/Units 16:44 WBC 8.7 (4.8-10.8) X10*3/uL RBC 4.72 (4.20-5.50) X10*6/uL Hgb 12.7 (12.0-16.0) g/dl Hct 39.5 (37.0-47.0) % MCV 83.7 (80.0-98.0) fL MCH 26.9 L (27.0-33.0) pg MCHC 32.2 (31.0-35.0) g/dl RDW 15.0 (11.0-16.0) % Plt Count 354 (160-400) X10*3/uL MPV 9.9 (9.4-12.3) fL Immature Gran % (Auto) 0.5 H (0.0-0.4) % Neut % (Auto) 65.0 (45-73) % Lymph % (Auto) 28.1 (20-40) % Maries % (Auto) 3.4 (2-11) % Eos % (Auto) 2.5 (0-4) % Baso % (Auto) 0.5 (0-2) % Lymph # (Auto) 2.5 (1.2-4.9) X10*3/uL Maries # (Auto) 0.3 (0.1-1.2) X10*3/uL Eos # (Auto) 0.2 (0.0-0.4) X10*3/uL Baso # (Auto) 0.0 (0.0-0.2) X10*3/uL Abs Immat Gran (auto) 0.04 H (0.00-0.03) X10*3/uL Absolute Neuts (auto) 5.7 (2.0-8.3) x10*3/uL Absolute Nucleated RBC 0.000 (0.0-0.012) X10*3/uL Nucleated RBC % (auto) 0.0 (0.0-0.2) /100WBC Sodium 136 (135-145) mmol/L Potassium 3.9 (3.3-5.1) mmol/L Chloride 104 (96-108) mmol/L Carbon Dioxide 25 (22-29) mmol/L Anion Gap 11 L (12-20) BUN 10 (9-16) mg/dL Creatinine 0.70 (0.5-1.4) mg/dL Estim Creat Clear Calc 108.2 Estimated GFR > 60 Random Glucose 122 H (60-115) mg/dL Calcium 9.4 (8.4-10.2) mg/dL Troponin I High Sens < 2.7 (<3.5-17.0) ng/L Influenza Type A (PCR) NEGATIVE (Negative) Influenza Type B (PCR) NEGATIVE (Negative) RSV RNA Qual (PCR) NEGATIVE (Negative) SARS-CoV-2 RNA (RT-PCR) NEGATIVE (Negative) Independent Interpretation I performed an independent interpretation of an: EKG (Sinus rhythm rate 80 beats per minute. No ST segment elevations or depressions.) and Plain X-Ray (Agree with Radiology interpretation) Radiology Impression Discussion of test interpretation with radiology: I have reviewed the radiologist's reading. Discharge Plan Discharge Clinical Impression: Acute upper respiratory infection Patient Disposition: Home, Self-Care Instructions: Upper Respiratory Infection (ED) Additional Instructions: Take prednisone 40 mg daily for the next 5 days. Use azithromycin as prescribed Use your albuterol inhaler as needed for wheezing and shortness of breath Prescriptions: New azithromycin 250 mg tablet See Rx Instructions .ROUTE .COMPLEX Qty: 6 0RF Rx Instructions: For 250 mg dose pack: take 500 mg today (day 1), then 250 mg for 4 days (days 2-5) prednisone 20 mg tablet 40 mg PO DAILY Qty: 10 0RF albuterol sulfate 90 mcg/actuation HFA aerosol inhaler 2 puff inhalation Q4-6H PRN (Reason: shortness of breath or wheezing) Qty: 6.7 0RF No Action metronidazole 0.75 % (37.5mg/5 gram) gel 1 appful vaginal BEDTIME 5 Days Qty: 70 0RF cefdinir 300 mg capsule 300 mg PO BID 7 Days Qty: 14 0RF naproxen 500 mg tablet 500 mg PO BID 7 Days Qty: 14 0RF phenazopyridine [Pyridium] 200 mg tablet 200 mg PO TID 3 Days Qty: 9 0RF clonazepam 1 mg tablet 0.5 mg PO BEDTIME
[2023-06-09 16:55] LABS: Basophils Percent Auto 0.5 % (0-2); Eosinophils Absolute Auto 0.2 X10*3/uL (0.0-0.4); Eosinophils Percent Auto 2.5 % (0-4); Hematocrit 39.5 % (37.0-47.0); Hemoglobin 12.7 g/dl (12.0-16.0); Imm Gran Abs Auto 0.04 X10*3/uL (0.00-0.03); Imm Gran Pct Auto 0.5 % (0.0-0.4); Lymphocytes Absolute Auto 2.5 X10*3/uL (1.2-4.9); Lymphocytes Percent Auto 28.1 % (20-40); Mean Corpuscular HGB Conc 32.2 g/dl (31.0-35.0); Mean Corpuscular Hemoglobin 26.9 pg (27.0-33.0); Mean Corpuscular Volume 83.7 fL (80.0-98.0); Mean Platelet Volume 9.9 fL (9.4-12.3); Monocytes Absolute Auto 0.3 X10*3/uL (0.1-1.2); Monocytes Percent Auto 3.4 % (2-11); Neutrophils Absolute Auto 5.7 x10*3/uL (2.0-8.3); Platelet Count 354 X10*3/uL (160-400); Red Blood Count 4.72 X10*6/uL (4.20-5.50); White Blood Count 8.7 X10*3/uL (4.8-10.8)
[2023-06-09 17:01] LABS: Anion Gap 11 (12-20); Blood Urea Nitrogen 10 mg/dL (9-16); Calcium 9.4 mg/dL (8.4-10.2); Carbon Dioxide 25 mmol/L (22-29); Chloride 104 mmol/L (96-108); Creatinine Clr Calc Pharmacy 108.2; Estimated Glomerular Filt Rate > 60; Glucose Random 122 mg/dL (60-115); Potassium 3.9 mmol/L (3.3-5.1); Sodium 136 mmol/L (135-145)
[2023-06-09 17:09] LABS: Troponin-I High Sensitivity < 2.7 ng/L (<3.5-17.0)
[2023-06-09 17:27] LABS: Influenza A PCR NEGATIVE (Negative); Influenza B PCR NEGATIVE (Negative); Resp Syncy Virus RNA Qual PCR NEGATIVE (Negative); SARS COV2 PCR INHOUSE NEGATIVE (Negative)
[2023-06-09] MEDS: Albuterol Sulfate 90 MCG 8 GM INHALER 4 PUFF INHALE (23:01)
[2023-06-09 23:03] VITALS: PULSE 78; RESP 18; O2SAT 98
== END 2023-06-09 23:17 | disposition home or self-care (01) ==
PROVIDERS: Registered Nurse Emergency; Emergency Provider Emergency Medicine
DX: J06.9 Acute upper respiratory infection, unspecified (principal); R07.89 Other chest pain; J40 Bronchitis, not specified as acute or chronic; R06.02 Shortness of breath; Z20.822 Contact with and (suspected) exposure to COVID-19; Z20.828 Contact with and (suspected) exposure to other viral communicable diseases; Z79.899 Other long term (current) drug therapy
CPT/HCPCS: 0241U; 36415; 71046; 80048; 84484; 85025; 93005; 94640; 99284

== ENCOUNTER → 2023-06-09 16:25 | Outpatient (BNV) | payer MEDICAID, SELFPAY | PROVIDERS: Emergency Provider Emergency Medicine; Visit Provider Internal Medicine Cardiovascular Disease | DX: R07.9 Chest pain, unspecified (principal) | CPT/HCPCS: 93010 ==

== ENCOUNTER 2023-07-11 03:22 | Emergency (ER) | payer MEDICAID, SELFPAY ==
--- NOTE | 2023-07-11 | ECG_ITS ---
Test Reason : chest pain Blood Pressure : / mmHG Vent. Rate : 080 BPM Atrial Rate : 080 BPM P-R Int : 140 ms QRS Dur : 072 ms QT Int : 368 ms P-R-T Axes : 062 021 028 degrees QTc Int : 424 ms Normal sinus rhythm Normal ECG When compared with ECG of 09-JUN-2023 16:30, No significant change was found Referred By: Generic ED Physician Electronically Signed By:GUILLERMO STALLWORTH
--- NOTE | ~2023-07-11 | XR_ITS ---
EXAMINATION: XR CHEST CLINICAL INFORMATION: Shortness of breath. Cough. COMPARISON: Chest radiograph dated 06/09/2023. TECHNIQUE: 2 views of the chest were obtained. FINDINGS: The lungs are clear. The cardiomediastinal silhouette is normal in size. There is no pleural effusion or pneumothorax. No acute osseous abnormality. XR/XR chest 2V IMPRESSION: No acute cardiopulmonary findings.
[2023-07-11 03:26] VITALS: BP 137/84; PULSE 82; RESP 17; TEMP 36.7; O2SAT 96; BMI 31.7
[2023-07-11 04:00] LABS: MANUAL DIFF FLAG NO
[2023-07-11 04:02] LABS: Basophils Percent Auto 0.4 % (0-2); Eosinophils Absolute Auto 0.4 X10*3/uL (0.0-0.4); Eosinophils Percent Auto 3.7 % (0-4); Hematocrit 39.1 % (37.0-47.0); Hemoglobin 12.7 g/dl (12.0-16.0); Imm Gran Abs Auto 0.03 X10*3/uL (0.00-0.03); Imm Gran Pct Auto 0.3 % (0.0-0.4); Lymphocytes Absolute Auto 3.5 X10*3/uL (1.2-4.9); Lymphocytes Percent Auto 32.1 % (20-40); Mean Corpuscular HGB Conc 32.5 g/dl (31.0-35.0); Mean Corpuscular Hemoglobin 26.8 pg (27.0-33.0); Mean Corpuscular Volume 82.7 fL (80.0-98.0); Monocytes Absolute Auto 0.8 X10*3/uL (0.1-1.2); Neutrophils Absolute Auto 6.2 x10*3/uL (2.0-8.3); Neutrophils Percent Auto 56.5 % (45-73); Platelet Count 325 X10*3/uL (160-400); Red Blood Count 4.73 X10*6/uL (4.20-5.50); Red Cell Distribution Width 15.6 % (11.0-16.0); White Blood Count 10.9 X10*3/uL (4.8-10.8)
[2023-07-11 04:16] LABS: Alanine Aminotransferase 22 U/L (0-31); Albumin Level 4.2 g/dL (3.5-5.0); Alkaline Phosphatase 76 U/L (39-117); Anion Gap 12 (12-20); Aspartate Amino Transferase 20 U/L (5-31); Bilirubin Total 0.3 mg/dL (0.0-1.0); Blood Urea Nitrogen 13 mg/dL (9-16); Calcium 9.5 mg/dL (8.4-10.2); Carbon Dioxide 22 mmol/L (22-29); Chloride 109 mmol/L (96-108); Creatinine Clr Calc Pharmacy 96.3; Estimated Glomerular Filt Rate > 60; Glucose Random 93 mg/dL (60-115); Potassium 3.8 mmol/L (3.3-5.1); Sodium 139 mmol/L (135-145); Total Protein 7.4 g/dL (6.5-8.0)
[2023-07-11 04:27] LABS: Troponin-I High Sensitivity < 2.7 ng/L (<3.5-17.0)
[2023-07-11 04:39] LABS: Influenza A PCR NEGATIVE (Negative); Influenza B PCR NEGATIVE (Negative); Resp Syncy Virus RNA Qual PCR NEGATIVE (Negative); SARS COV2 PCR INHOUSE NEGATIVE (Negative)
--- NOTE | 2023-07-11 06:56 | ED_ITS ---
HPI - General Adult General Chief complaint: General Medical Stated complaint: Cough/Sob Time Seen by Provider: 07/11/23 06:56 History of Present Illness HPI narrative: The patient is a 47-year-old woman who says that she has been having symptoms for 4 days or perhaps a couple more days of cough, sore throat, chest congestion and chest pressure, particularly when she lies down. He does not know if she has had a fever. She has had a mild sore throat. She is concerned that she makes a wheezing noise when she breathes. Related Data Home Medications Medication Instructions Recorded Confirmed clonazepam 1 mg tablet 0.5 mg PO BEDTIME 06/27/20 01/06/23 Previous Rx's Medication Instructions Recorded cefdinir 300 mg capsule 300 mg PO BID 7 days #14 caps 01/07/23 naproxen 500 mg tablet 500 mg PO BID 7 days #14 tabs 01/07/23 phenazopyridine 200 mg tablet 200 mg PO TID 3 days #9 tabs 01/07/23 (Pyridium) metronidazole 0.75 % (37.5 mg/5 1 appful vaginal BEDTIME 5 days 01/14/23 gram) vaginal gel #70 grams albuterol sulfate 90 mcg/actuation 2 puff inhalation Q4-6H PRN 06/09/23 aerosol inhaler shortness of breath or wheezing #6.7 grams azithromycin 250 mg tablet See Rx Instructions PO .COMPLEX #6 06/09/23 tabs prednisone 20 mg tablet 40 mg (2 x 20 mg) PO DAILY #10 tabs 06/09/23 azithromycin 250 mg tablet 250 mg PO DAILY 4 days #4 tabs 07/11/23 prednisone 20 mg tablet 40 mg (2 x 20 mg) PO DAILY 4 days 07/11/23 #8 tabs Allergies Allergy/AdvReac Type Severity Reaction Status Date / Time No Known Allergies Allergy Verified 01/06/23 11:57 Review of Systems 2 Review of Systems: Yes all other systems are reviewed and are negative PMFSH Past Medical History Medical History Anxiety Depression Surgical History H/O breast augmentation History of abdominal surgery History of endometrial ablation Hx of tubal ligation Family History Family History Father HTN (hypertension) Mother HTN (hypertension) Social History Social History Alcohol intake: never Advance Directives: No Advance Directives Information Provided: Yes service: No Current occupational status: unemployed Gender identity: Female Physical Exam ED Vital Signs: Vital Signs - 24 hr 07/11/23 03:26 07/11/23 07:37 07/11/23 07:46 Temperature 98.0 F Pulse Rate 82 81 78 Respiratory Rate 17 20 18 Blood Pressure 137/84 124/76 Pulse Oximetry 96 97 Oxygen Delivery Method Room Air Room Air BMI result Body Mass Index 31.7 Const Other: The patient was asleep at the time that I walked into the room. She awoke easily with gentle stimulation to a normal mental status. She does not appear in acute distress her obviously acutely ill. HENMT Other: Pharynx is unremarkable. Mucous membranes moist. Airway clear. Eyes Other: Pupils are round equal, conjunctivae clear, extraocular movements intact Neck Other: No JVD, no cervical adenopathy Resp Other: Mild inspiratory and expiratory wheezes bilaterally. Overall good air entry bilaterally. Cardio Other: Regular rate rhythm no murmur Skin Other: Dry and unremarkable Neuro Other: Awake, alert, appropriate, speech clear, moving all extremities normally, grossly neurologically intact Extrem Other: No peripheral edema, no calf swelling or tenderness, no asymmetry Medications Administered Discontinued Medications Generic Name Dose Route Start Last Admin Trade Name Freq PRN Reason Stop Dose Admin Acetaminophen 975 mg 07/11/23 07:06 07/11/23 07:30 Acetaminophen 325 Mg Tablet PO 07/11/23 07:07 Not Given ONCE ONE Albuterol Sulfate 4 puff 07/11/23 07:40 07/11/23 07:45 Albuterol Sulfate 90 Mcg 8 Gm Inhaler INHALE 07/11/23 07:41 4 puff ONCE ONE Administration Azithromycin 500 mg 07/11/23 07:57 07/11/23 08:48 Azithromycin 500 Mg Tablet PO 07/11/23 07:58 500 mg ONCE ONE Administration Ibuprofen 600 mg 07/11/23 07:06 07/11/23 07:28 Ibuprofen 600 Mg Tablet PO 07/11/23 07:07 600 mg ONCE ONE Administration Prednisone 60 mg 07/11/23 07:57 07/11/23 08:48 Prednisone 20 Mg Tablet PO 07/11/23 07:58 60 mg ONCE ONE Administration Medical Decision Making Medical Decision Making [facility] Narrative: Patient is a pleasant 47-year-old who presents with cough and sore throat and congestion for a week complaining of chest pressure when lying down. EKG is unremarkable and troponin is negative. The patient does not appear acutely toxic. I think she has some wheezes on exam. I suspect she probably has some underlying asthma and that she likely has asthmatic bronchitis. Respiratory therapy was consulted and the patient was instructed in the use of an AeroChamber and an albuterol inhaler. The patient also be started on a course of prednisone and azithromycin. She should follow up with regular doctor. Lab Data 07/11/23 03:54 07/11/23 03:54 Labs: Lab Results 07/11/23 07/11/23 Range/Units 03:54 07:27 WBC 10.9 H (4.8-10.8) X10*3/uL RBC 4.73 (4.20-5.50) X10*6/uL Hgb 12.7 (12.0-16.0) g/dl Hct 39.1 (37.0-47.0) % MCV 82.7 (80.0-98.0) fL MCH 26.8 L (27.0-33.0) pg MCHC 32.5 (31.0-35.0) g/dl RDW 15.6 (11.0-16.0) % Plt Count 325 (160-400) X10*3/uL MPV 10.0 (9.4-12.3) fL Immature Gran % (Auto) 0.3 (0.0-0.4) % Neut % (Auto) 56.5 (45-73) % Lymph % (Auto) 32.1 (20-40) % Marshall % (Auto) 7.0 (2-11) % Eos % (Auto) 3.7 (0-4) % Baso % (Auto) 0.4 (0-2) % Lymph # (Auto) 3.5 (1.2-4.9) X10*3/uL Marshall # (Auto) 0.8 (0.1-1.2) X10*3/uL Eos # (Auto) 0.4 (0.0-0.4) X10*3/uL Baso # (Auto) 0.0 (0.0-0.2) X10*3/uL Abs Immat Gran (auto) 0.03 (0.00-0.03) X10*3/uL Absolute Neuts (auto) 6.2 (2.0-8.3) x10*3/uL Absolute Nucleated RBC 0.000 (0.0-0.012) X10*3/uL Nucleated RBC % (auto) 0.0 (0.0-0.2) /100WBC Sodium 139 (135-145) mmol/L Potassium 3.8 (3.3-5.1) mmol/L Chloride 109 H (96-108) mmol/L Carbon Dioxide 22 (22-29) mmol/L Anion Gap 12 (12-20) BUN 13 (9-16) mg/dL Creatinine 0.80 (0.5-1.4) mg/dL Estim Creat Clear Calc 96.3 Estimated GFR > 60 Random Glucose 93 (60-115) mg/dL Calcium 9.5 (8.4-10.2) mg/dL Total Bilirubin 0.3 (0.0-1.0) mg/dL AST 20 (5-31) U/L ALT 22 (0-31) U/L Alkaline Phosphatase 76 (39-117) U/L Troponin I High Sens < 2.7 (<3.5-17.0) ng/L Total Protein 7.4 (6.5-8.0) g/dL Albumin 4.2 (3.5-5.0) g/dL Beta HCG, Quant 4 mIU/mL Influenza Type A (PCR) NEGATIVE (Negative) Influenza Type B (PCR) NEGATIVE (Negative) RSV RNA Qual (PCR) NEGATIVE (Negative) SARS-CoV-2 RNA (RT-PCR) NEGATIVE (Negative) S. pyogenes GrpA SRI Negative (Negative) Independent Interpretation I performed an independent interpretation of an: EKG Interpretation: EKG at 03:44 shows normal sinus rhythm at 80 beats per minute. It is a normal EKG. Discharge Plan Discharge Clinical Impression: Acute asthmatic bronchitis Patient Disposition: Home, Self-Care Instructions: Asthma (ED), How to Use a Metered-Dose Inhaler and a Spacer (ED) Additional Instructions: Please take the prednisone and the azithromycin once a day as prescribed. Next dose for both of these medications is tomorrow. Please use the albuterol inhaler 2 puffs every 4 hours as needed for wheezing or shortness of breath or cough. Please use the albuterol inhaler with the spacer (also known as an AeroChamber) provided. Please follow-up soon with your regular doctor to discuss these symptoms further. Return to the emergency room a significantly worse. Prescriptions: New prednisone 20 mg tablet 40 mg PO DAILY 4 Days Qty: 8 0RF azithromycin 250 mg tablet 250 mg PO DAILY 4 Days Qty: 4 0RF Rx Instructions: start on day 2 of therapy No Action metronidazole 0.75 % (37.5mg/5 gram) gel 1 appful vaginal BEDTIME 5 Days Qty: 70 0RF cefdinir 300 mg capsule 300 mg PO BID 7 Days Qty: 14 0RF naproxen 500 mg tablet 500 mg PO BID 7 Days Qty: 14 0RF phenazopyridine [Pyridium] 200 mg tablet 200 mg PO TID 3 Days Qty: 9 0RF azithromycin 250 mg tablet See Rx Instructions .ROUTE .COMPLEX Qty: 6 0RF Rx Instructions: For 250 mg dose pack: take 500 mg today (day 1), then 250 mg for 4 days (days 2-5) prednisone 20 mg tablet 40 mg PO DAILY Qty: 10 0RF albuterol sulfate 90 mcg/actuation HFA aerosol inhaler 2 puff inhalation Q4-6H PRN (Reason: shortness of breath or wheezing) Qty: 6.7 0RF clonazepam 1 mg tablet 0.5 mg PO BEDTIME Referrals: Kimber Alcazar MD [Primary Care Provider] - Interventions: ED Discharge Assessment Last Done: 07/11/23 08:55 Discharge Date/Time: 07/11/23 08:55
[2023-07-11] MEDS: Ibuprofen 600 MG TABLET PO (07:28)
[2023-07-11 07:37] VITALS: BP 124/76; PULSE 81; RESP 20; O2SAT 97
[2023-07-11 07:40] LABS: HCG Quantitative 4 mIU/mL
[2023-07-11] MEDS: Albuterol Sulfate 90 MCG 8 GM INHALER 4 PUFF INHALE (07:45)
[2023-07-11 07:46] VITALS: PULSE 78; RESP 18; O2SAT 97
[2023-07-11 07:47] LABS: IDNOW Serial# 08D9AD1C; Strep A Nucleic Acid Negative (Negative)
[2023-07-11] MEDS: Azithromycin 500 MG TABLET PO (08:48)
[2023-07-11] MEDS: predniSONE 20 MG TABLET 60 MG PO (08:48)
== END 2023-07-11 08:55 | disposition home or self-care (01) ==
PROVIDERS: Emergency Provider Emergency Medicine; PCP Internal Medicine
DX: J45.909 Unspecified asthma, uncomplicated (principal); Z20.822 Contact with and (suspected) exposure to COVID-19; Z20.828 Contact with and (suspected) exposure to other viral communicable diseases; J02.9 Acute pharyngitis, unspecified; Z79.899 Other long term (current) drug therapy
CPT/HCPCS: 0241U; 71046; 80053; 84484; 84702; 85025; 87651; 93005; 94640; 94664; 99284

== ENCOUNTER → 2023-07-11 03:44 | Outpatient (BNV) | payer MEDICAID, SELFPAY | PROVIDERS: Emergency Provider Emergency Medicine; PCP Internal Medicine; Visit Provider Internal Medicine | DX: R07.9 Chest pain, unspecified (principal) | CPT/HCPCS: 93010 ==

== ENCOUNTER 2024-01-04 13:10 | Outpatient (REF) | payer MEDICAID, SELFPAY ==
[2024-01-05 06:07] LABS: CT PCR NOT DETECTED (Not Detect.); NG PCR NOT DETECTED (Not Detect.)
[2024-01-05 11:11] LABS: Bacterial Vaginosis PCR NEGATIVE (Negative); Candida Group PCR NOT DETECTED (Not Detect); Candida glab krusei PCR NOT DETECTED (Not Detect); Trichomonas vaginalis PCR NOT DETECTED (Not Detect)
== END 2024-01-04 13:11 | disposition home or self-care (01) ==
LOC: HO.LAB 13:10
PROVIDERS: PCP Internal Medicine; Visit Provider Advanced Practice Midwife
DX: N94.9 Unspecified condition associated with female genital organs and menstrual cycle (principal); N89.8 Other specified noninflammatory disorders of vagina
CPT/HCPCS: 0352U; 87491; 87591; 99212

== ENCOUNTER 2024-01-04 13:10 | Outpatient (AMB) | payer MEDICAID, SELFPAY ==
[2024-01-04 13:17] VITALS: BP 120/70; BMI 31.4
--- NOTE | 2024-01-04 13:17 | A.OFFVIS_ITS ---
Vital Signs 01/04/24 13:17 Height 5 ft 5 in Weight 189 lb BMI 31.4 BP 120/70 Intake Visit Reasons: vaginal odor Paper Testing Supervisor Services: Paper Testing Supervisor Present Information Interpreted: clinical only Plastic Eye Technician: Plastic Eye Technician Present Allergies No Known Allergies Allergy (Verified 01/04/24 13:19) Medication List - Last Reconciled 01/04/24 by Lila Mcadams CNM albuterol sulfate 90 mcg/actuation 2 puffs inhalation Q4-6H PRN cefdinir 300 mg PO BID 7 days clonazepam 0.5 mg PO BEDTIME phenazopyridine (Pyridium) 200 mg PO TID 3 days Is last menstrual period known: No HPI HPI vaginal odor: Details: Patient is here because she has having a vaginal odor it has been there for about 6 or 7 days. She has not had sex for about 3 months. At the end of the visit she did share that she thinks it smells to her likes when she had bacteria l vaginosis.. She has a history of endometrial ablation so she does not get a period sometimes she gets symptoms of a period, But she can not tell. She does not get any spotting. She just recently about 4 days ago got over being very sick for 6 or 7 days she did not test herself but she believes it was COVID because it felt very much like the last 2 times she had it only worse however she did not lose her sense of smell. She is wearing a mask. [facility] Medical History Anxiety Depression Surgical History History of endometrial ablation History of abdominal surgery H/O breast augmentation Hx of tubal ligation Family History Father HTN (hypertension) Mother HTN (hypertension) Social History Alcohol intake: never service: No Current occupational status: unemployed Gender identity: Female Female Reproductive History Menstrual Age of Menarche: 15 Duration of menses: <3 days control method: permanent sterilization Total pregnancies: 4 Full term: 4 Date of last pap smear: 07/21/21 (negative,previous pap 2020,WNL) Physical Exam Vital Signs: Last Vital Signs BP 120/70 01/04/24 13:17 BMI result Body Mass Index 31.4 External Female Exam: normal external appearance and normal appearance of the urethra Speculum Exam - Vagina: normal appearance of the vagina and normal vaginal discharge Speculum Exam - Cervix: normal appearance of the cervix and Cervical os closed Results Reviewed Results Reviewed: Name: Chana Hannah Age/Sex: 45/F Attending: Lila Mcadams CNM : 1975 Submitted by: Lila Mcadams CNM Copies to: MR #: [id number] Status: DEP REF Collected: 07/21/21 Location: .LAB Received: 07/23/21 Interpretation Satisfactory for evaluation. Mild inflammation. Negative for intraepithelial lesion or malignancy. HPV mRNA E6/E7: NOT DETECTED This assay detects E6/E7 viral messenger RNA (mRNA) from 14 high-risk HPV types (16, 18, 31, 33, 35, 39, 45, 51, 52, 56, 58, 59, 66, 68) HPV testing performed by [facility], [place], [place]. See reference laboratory portion of the EMR for entire report. Clinical Information LMP: Unknown date Previous PAP test: WNL Material Received ThinPrep- Cervical Electronically Signed By: LINH Gutierrez (ASCP) 07/29/21 2247 The Pap Test is a screening procedure with the inherent possibility of both false negative and false positive results. Results should be interpreted in the context of historic and current clinical findings. Reliability of the Pap Test is enhanced by performing the test on a regular repetitive basis. Patient: Malini Page 1 of 1 Assessment & Plan Assessment & Plan (1) Problematic vaginal discharge: Comment: See note will treat as BV Code(s): N89.8 - Other specified noninflammatory disorders of vagina Category: Medical Plan Discussed her experience that COVID is on the rise and it could very well have been COVID especially if she feels like it was. It is good that she is still masking when she goes out Discussed her perception she does think that it smells like when she had BV before so I offered her prescription for the treatment of her choice just Metrogel and she will go ahead and start it now and use it for 5 days I also sending to refills on it so she can use it again in the future if she perceives that has the issue was discussed that very possibly even though she has not had sex recently when a person has endometrial ablation if they have even just a little drop of blood it can help contribute to increasing bacterial content in the vagina and results in the malodorous bacterial vaginosis. testing done. Orders: Orders CT NG by PCR Today N89.8 - Other specified noninflammatory disorders of vagina, N94.9 - Unspecified condition associated with female genital organs and menstrual cycle Bacterial Vaginosis Panel Today N89.8 - Other specified noninflammatory disorders of vagina, N94.9 - Unspecified condition associated with female genital organs and menstrual cycle Medications: New metronidazole 0.75%(37.5mg/5gram) 1 appful vaginal BID 5 days 70 grams 2RF Coding Level of Care Code Est Pt Level 3 (83123) Diagnoses Problematic vaginal discharge N89.8
== END 2024-01-04 14:18 | disposition home or self-care (01) ==
LOC: HO.HWSM 13:10
PROVIDERS: PCP Internal Medicine; Visit Provider Advanced Practice Midwife
DX: N89.8 Other specified noninflammatory disorders of vagina (principal)
CPT/HCPCS: 99213